=== PATIENT | female | born 1960 | race Caucasian/White ===

== ENCOUNTER 2020-07-16 06:01 | Inpatient (IN) ==
--- NOTE | 2020-06-23 14:42 | PAT Medication Instructions ---
Medication Instructions Date of Service June 23, 2020 Home Medications buspirone 30 mg PO BID calcium citrate-vitamin D3 [Calcitrate-Vitamin D] 1 tab PO TID clonazepam 1 mg PO BID PRN diltiazem HCl 90 mg PO TID docusate sodium [Stool Softener] 50 mg PO BID escitalopram oxalate [Lexapro] 20 mg PO HS gabapentin 300 mg PO TID lisinopril 40 mg PO QAM multivitamin 1 cap PO QAM pantoprazole 40 mg PO QAM polyethylene glycol 3350 [Miralax] 17 g PO QAM rosuvastatin 10 mg PO QAM sucralfate 1 g PO TID trazodone 150 mg PO HS DO NOT take the morning of surgery calcium citrate-vitamin D3 [Calcitrate-Vitamin D] 1 tab PO TID docusate sodium [Stool Softener] 50 mg PO BID lisinopril 40 mg PO QAM multivitamin 1 cap PO QAM polyethylene glycol 3350 [Miralax] 17 g PO QAM sucralfate 1 g PO TID Take morning of surgery With a small sip of water, OTHERWISE NOTHING TO EAT OR DRINK AFTER MIDNIGHT: buspirone 30 mg PO BID clonazepam 1 mg PO BID PRN (if needed) diltiazem HCl 90 mg PO TID gabapentin 300 mg PO TID pantoprazole 40 mg PO QAM rosuvastatin 10 mg PO QAM Take evening before surgery buspirone 30 mg PO BID calcium citrate-vitamin D3 [Calcitrate-Vitamin D] 1 tab PO TID clonazepam 1 mg PO BID PRN (if needed) diltiazem HCl 90 mg PO TID docusate sodium [Stool Softener] 50 mg PO BID escitalopram oxalate [Lexapro] 20 mg PO HS gabapentin 300 mg PO TID sucralfate 1 g PO TID trazodone 150 mg PO HS Other Notes If you have any questions please call us at [phone] or [phone] or [phone] or [phone]
--- NOTE | 2020-06-29 10:25 | Anesthesiology Consultation ---
Date of Service June 29, 2020 Assessment & Plan (1) Encounter for pre-operative examination: COVID Status: As of 06/29 assessment, patient denies travel to endemic area, known exposure/sick contacts, or symptoms of COVID19. Patient instructed that they and their household members must follow strict social distancing guidelines, wear a mask in public and avoid travel/events/gatherings for 14 days prior to surgery. Preoperative COVID19 testing to be completed prior to surgery per surgeon's arrangements (07/09). Patient made aware to self-isolate as much as possible between COVID testing and surgery. Chart Review Chart Review: Acceptable Risk for Surgery and Patient seen in Pre Admission Testing Teaching & Discussion Instructed NPO after midnight before surgery, except medications with 15 cc of water. Medication instructions provided according to the PAT guidelines. History Surgery Operation Date: 07/16/20 10:35 Proposed Procedures p C6-C7 Anterior Cervical Discectomy Fusion, C5 Corpectomy, Spinal Cord Monitoring - Jeb Frazier, Height/Weight Height: 5 ft 7.5 in Weight: 98.4 kg Allergies Allergy/AdvReac Type Severity Reaction Status Date / Time naproxen [From Naprosyn] Allergy Intermediate hives, Verified 06/23/20 08:37 tongue swells NSAIDS (Non-Steroidal AdvReac Mild due to Verified 06/23/20 08:37 Anti-Inflamma gastric bypass Medications Home Medications Medication Instructions Recorded Confirmed Last Taken buspirone 30 mg PO BID 06/23/20 06/23/20 Unknown calcium citrate-vitamin D3 1 tab PO TID 06/23/20 06/23/20 Unknown [Calcitrate-Vitamin D] clonazepam 1 mg PO BID PRN 06/23/20 06/23/20 Unknown diltiazem HCl 90 mg PO TID 06/23/20 06/23/20 Unknown docusate sodium [Stool Softener] 50 mg PO BID 06/23/20 06/23/20 Unknown escitalopram oxalate [Lexapro] 20 mg PO HS 06/23/20 06/23/20 Unknown gabapentin 300 mg PO TID 06/23/20 06/23/20 Unknown lisinopril 40 mg PO QAM 06/23/20 06/23/20 Unknown multivitamin 1 cap PO QAM 06/23/20 06/23/20 Unknown pantoprazole 40 mg PO QAM 06/23/20 06/23/20 Unknown polyethylene glycol 3350 [Miralax] 17 g PO QAM 06/23/20 06/23/20 Unknown rosuvastatin 10 mg PO QAM 06/23/20 06/23/20 Unknown sucralfate 1 g PO TID 06/23/20 06/23/20 Unknown trazodone 150 mg PO HS 06/23/20 06/23/20 Unknown Past Medical History Medical History (Updated 06/29/20 @ 16:15 by Tuan Chase) Anxiety Cardiac murmur Mild MR/TR noted on previous echo. Depression GERD (gastroesophageal reflux disease) Herniated disc, cervical Hyperlipidemia Hypertension Irregular heart beat SVT? pt unsure. follows with Dr. Zuniga. Pt reports h/o "racing heart." Was offered ablation but declined. Symptoms resolved with Diltiazem. Kidney stones Small, under observation, no issues currently. Sleep apnea cpap, reports 75% compliance, sometimes falls asleep in recliner. Thyroid nodule PCP monitoring with serial imaging Exercise / Class Metabolic Activity II 4-5 Yardwork/Stairs/Walk up hill Past Surgical History Surgical History History of arthroscopy of left shoulder History of carpal tunnel release of both wrists History of left knee replacement History of right knee joint replacement History of total left hip arthroplasty Hx of section 1980 Hx of colonoscopy Hx of esophagogastroduodenoscopy Hx of gastric bypass 2010 Hx of hand surgery tips of fingers repaired from accident x 2 Hx of hysterectomy nitin Past Anesthesia History No Hx of Anesthesia Complications and No Family Hx of Anesthesia Complications (daughter PONV) History of PONV No Hx of PONV and No Hx of Motion Sickness Social History Smoking Status: Former smoker Do You Dip or Chew Tobacco: No Smoking End Date: smoked for 30yrs, quit > 10yrs ago Hx Alcohol Use: No Hx Substance Use: No substance use type: does not use Review of Systems Pt denies any recent chest pain, shortness of breath, palpitations, cough, fever, URI, or uncontrolled acid reflux. Physical Exam Vital Signs BP: 120/67 P: 63bpm SPO2: 97% RA T: 98.1 F R: 16 ENMT Mouth: no dental restorations, no chipped teeth and no loose teeth Thyromental Distance: > or= 3.5 Finger Breadths Mallampati Class: I Neck normal visual inspection and + limited neck extension (pain with full extension) Respiratory normal respiratory effort, lungs clear to auscultation Auscultation: + diminished lung sounds (slightly, B/L) Cardiovascular Rate/Rhythm: + bradycardic Heart Sounds: no murmur Extremities: no edema Testing Laboratory Results 06/29/20 10:32 06/29/20 10:32 PT 10.1 Seconds (9.0-12.0) 06/29/20 10:32 INR 1.0 (0.9-1.1) 06/29/20 10:32 APTT 24.6 Seconds (21.0-31.0) 06/29/20 10:32 Urine Color Yellow 06/29/20 Unknown Urine Appearance Clear (Clear) 06/29/20 Unknown Urine pH 7.0 (4.5-7.5) 06/29/20 Unknown Ur Specific [place] 1.010 (1.000-1.030) 06/29/20 Unknown Urine Protein Negative (Negative) 06/29/20 Unknown Urine Glucose (UA) Negative (Negative) 06/29/20 Unknown Urine Ketones Negative (Negative) 06/29/20 Unknown Urine Nitrite Negative (Negative) 06/29/20 Unknown Ur Leukocyte Esterase Negative (Negative) 06/29/20 Unknown Blood Type A Positive 06/29/20 10:32 Antibody Screen NEGATIVE 06/29/20 10:32 Electrocardiogram Date: 06/29/20 Findings: + SB @ (52bpm) with 1st degree AV block *Unconfirmed. Chest X-Ray Date: 06/29/20 Findings: + NAD Echocardiogram Date: 06/19/19 EF: 55% Mildly increased PASP at 35mmHg. Slightly dilated LA, normal RA. Mild TR and MR. Normal pulmonic and aortic valves. Trivial circumferential pericardial effusion. Stress Test Date: 02/15/17 Type: nuclear Good quality study. Normal gated MPI wall motion and EF. No significant rest or stress-induced MPI defects to suggest myocardial ischemia or infarction. Low risk study.
[2020-06-29 11:05] LABS: Basophils # (auto) 0.01 K/uL (0-0.2); Basophils % (auto) 0.1 %; Eosinophils # (auto) 0.09 K/uL (0-0.5); Eosinophils % (auto) 1.3 %; Hematocrit (blood only) 42.3 % (37-47); Immature Granulocytes # (auto) 0.01 K/uL (0.00-0.02); Immature Granulocytes % (auto) 0.1 %; Lymphocytes # (auto) 1.84 K/uL (1.2-3.4); Lymphocytes % (auto) 25.8 %; Mean Corpuscular Hemoglobin 30.5 pg (25-34); Mean Corpuscular Hgb Conc 33.1 g/dL (32-36); Mean Corpuscular Volume 92.2 fL (80-100); Mean Platelet Volume 10.2 fL (7.4-10.4); Monocytes # (auto) 0.57 K/uL (0.11-0.59); Neutrophils % (auto) 64.7 %; Platelet Count 282 K/uL (130-400); RDW Standard Deviation 43.4 fL (36.4-46.3); Red Blood Count 4.59 M/uL (4.2-5.4); White Blood Count 7.12 K/uL (4.8-10.8)
--- NOTE | 2020-06-29 11:06 | XRay Report ---
XR chest Pre-admission PA/Lat CLINICAL HISTORY: Preoperative chest COMPARISON STUDY: No previous studies for comparison. FINDINGS: The cardiac and mediastinal contours are normal. There is no evidence of focal pulmonary co nsolidation. There is no evidence of failure. No pleural effusions are visualized.[There is calcified left lower lobe granuloma. There is a thoracolumbar scoliosis. IMPRESSION: No active disease in the chest. ACT 112: Negative or not required by law. Electronically signed by: Doc Zhang M.D. 06/29/2020 11:04 AM
[2020-06-29 11:10] LABS: Appearance Urine Clear (Clear); Bilirubin Urine Negative (Negative); Blood Urine Negative (Negative); Color Urine Yellow; Glucose Urine UA Negative (Negative); Ketones Urine Negative (Negative); Leukocyte Esterase Urine Negative (Negative); Nitrite Urine Negative (Negative); Protein Urine Negative (Negative); Urobilinogen Urine Negative (Negative)
[2020-06-29 11:18] LABS: Partial Thromboplastin Ratio 0.9; Partial Thromboplastin Time 24.6 Seconds (21.0-31.0); Prothrombin Time 10.1 Seconds (9.0-12.0)
[2020-06-29 12:16] LABS: BUN Creatinine Ratio 13.9 (10-20); Calcium 9.1 mg/dl (8.5-10.1); Creatinine Clr Calc Pharmacy 89.8 ml/min; Est GFR (Non-African American) 80.2; Potassium 4.2 mmol/L (3.5-5.1)
--- NOTE | 2020-06-30 06:14 | Electrocardiogram Report ---
Test Reason : Blood Pressure : / mmHG Vent. Rate : 052 BPM Atrial Rate : 052 BPM P-R Int : 222 ms QRS Dur : 102 ms QT Int : 456 ms P-R-T Axes : 074 055 053 degrees QTc Int : 424 ms Sinus bradycardia with 1st degree A-V block Otherwise normal ECG No previous ECGs available Confirmed by Romie Devi ([id number]) on 06/30/2020 6:14:10 AM Referred By: Jeb Frazier Confirmed By:Romie Devi
[~2020-07-16 06:01] MED LIST: ACETAMINOPHEN 500 MG TAB PO SCH; CeleBREX 200 MG CAP PO SCH; GABAPENTIN 600 MG DOSE PO SCH; LR 15ML/HR IV SCH; ceFAZolin 2000MG 2,000 MG/15 ML SYR IV SCH
[2020-07-16] MEDS: CELEBREX: ALLERGY NOTED TO ORDERED MEDICATION SCH ×2 (06:37→13:09)
[2020-07-16] MEDS ORDERED: fentaNYL citrate 100 MCG/2 ML VIAL ONE ×2 (06:54→08:11)
[2020-07-16] MEDS ORDERED: BACITRACIN INJ 50,000 UNIT VIAL ONE (06:54)
[2020-07-16] MEDS ORDERED: MIDAZOLAM HCL 1 MG/ML 2ML VIAL ONE (06:54)
[2020-07-16] MEDS ORDERED: PROPOFOL IV EMULSION 10 MG/ML 20 ML VIAL IV ONE (07:02)
[2020-07-16] MEDS ORDERED: NEOSTIGMINE METHYLSULFATE 1 MG/ML 10ML VIAL ONE (07:02)
[2020-07-16] MEDS ORDERED: GLYCOPYRROLATE 0.2 MG/ML VIAL ONE (07:02)
[2020-07-16] MEDS ORDERED: LIDOCAINE HCL 2% 2 ML VIAL/AMP(20MG/ML) INFIL ONE (07:02)
[2020-07-16] MEDS ORDERED: ROCURONIUM BROMIDE 10 MG/ML 5 ML VIAL IV ONE (07:02)
[2020-07-16] MEDS ORDERED: LABETALOL HCL IV 5 MG/ML 20ML IV PRN (07:28)
[2020-07-16] MEDS ORDERED: ATROPINE SULFATE 0.1 MG/ML 10ML SYR IV PRN (07:28)
[2020-07-16] MEDS ORDERED: ONDANSETRON INJ 2 MG/ML 2 ML VIAL IV PRN ×2 (07:28→11:29)
[2020-07-16] MEDS ORDERED: PHENYLEPHRINE 100MCG/ML 5ML SYR IV PRN (07:28)
[2020-07-16] MEDS ORDERED: ePHEDrine sulfate 50 MG/ML AMP IV PRN (07:28)
[2020-07-16] MEDS ORDERED: MEPERIDINE HCL 25 MG/ML CARP/VIAL IV PRN (07:28)
--- NOTE | 2020-07-16 07:31 | History & Physical Bridge Note ---
Date of Service July 16, 2020 History & Physical Bridge Note I have examined the patient, reviewed the History & Physical and in the interval since the performance of the History & Physical I have noted the following changes of clinical significance: no changes noted
--- NOTE | 2020-07-16 07:34 | History & Physical Report ---
Date of Service July 16, 2020 Assessment & Plan (1) Cervical stenosis of spinal canal: Admission and Anticipated Discharge Date Admission Date: Anterior cervical discectomy and fusion C6-C7 with C5 corpectomy History of Present Illness Chief Complaint: Neck and arm pain Primary Care Provider: Margaret Dougherty DO This is a 60-year-old female presents with chronic persistent neck and arm symptoms after failing course of nonoperative care she is here for surgical invention. Allergies Allergy/AdvReac Type Severity Reaction Status Date / Time naproxen [From Naprosyn] Allergy Intermediate hives, Verified 07/16/20 06:39 tongue swells NSAIDS (Non-Steroidal AdvReac Mild due to Verified 07/16/20 06:39 Anti-Inflamma gastric bypass Home Medications Medication Instructions Recorded Confirmed Type buspirone 30 mg PO BID 06/23/20 07/16/20 History calcium citrate-vitamin D3 1 tab PO TID 06/23/20 07/16/20 History [Calcitrate-Vitamin D] clonazepam 1 mg PO BID PRN 06/23/20 07/16/20 History diltiazem HCl 90 mg PO TID 06/23/20 07/16/20 History docusate sodium [Stool Softener] 50 mg PO BID 06/23/20 07/16/20 History escitalopram oxalate [Lexapro] 20 mg PO HS 06/23/20 07/16/20 History gabapentin 300 mg PO TID 06/23/20 07/16/20 History lisinopril 40 mg PO QAM 06/23/20 07/16/20 History multivitamin 1 cap PO QAM 06/23/20 07/16/20 History pantoprazole 40 mg PO QAM 06/23/20 07/16/20 History polyethylene glycol 3350 [Miralax] 17 g PO QAM 06/23/20 07/16/20 History rosuvastatin 10 mg PO QAM 06/23/20 07/16/20 History sucralfate 1 g PO TID 06/23/20 07/16/20 History trazodone 150 mg PO HS 06/23/20 07/16/20 History Past Med/Surg History Medical History (Updated 07/16/20 @ 07:33 by Jeb Frazier DO) Anxiety Cardiac murmur Mild MR/TR noted on previous echo. Depression GERD (gastroesophageal reflux disease) Herniated disc, cervical Hyperlipidemia Hypertension Irregular heart beat SVT? pt unsure. follows with Dr. Zuniga. Pt reports h/o "racing heart." Was offered ablation but declined. Symptoms resolved with Diltiazem. Kidney stones Small, under observation, no issues currently. Obesity Sleep apnea cpap, reports 75% compliance, sometimes falls asleep in recliner. Thyroid nodule PCP monitoring with serial imaging Surgical History History of arthroscopy of left shoulder History of carpal tunnel release of both wrists History of left knee replacement History of right knee joint replacement History of total left hip arthroplasty Hx of section 1980 Hx of colonoscopy Hx of esophagogastroduodenoscopy Hx of gastric bypass 2009 Hx of hand surgery tips of fingers repaired from accident x 2 Hx of hysterectomy nitin Social History Smoking Status: Former smoker Smoking End Date: smoked for 30yrs, quit > 10yrs ago; Second Hand Exposure: No; Do You Dip or Chew Tobacco: No; Tobacco Cessation Education Requested by Patient: No Hx Alcohol Use: No Hx Substance Use: No Preferred Language: Japanese Communication Ability: Effective Outside Machinist Helper Required: No Beliefs That Will Affect Care: None Current Living Situation: Spouse Other Information That Helps Us Care for You: No Feels Safe at Home: Yes Safety Concerns: Feels Safe At This Time Assistive Devices: Contacts, CPAP and Glasses Physical Exam Physical Exam: Patient is alert and oriented Heart regular in rhythm Lungs clear to auscultation Results & Data ([facility]) Vital Signs (Past 12 Hours) Vital Signs Temp Pulse Resp BP Pulse Ox 07/16/20 06:52 36.9 C 65 20 142/54 H 96
[2020-07-16] MEDS ORDERED: ONDANSETRON INJ 2 MG/ML 2 ML VIAL ONE (08:31)
[2020-07-16] MEDS ORDERED: SUCCINYLCHOLINE 100MG/5ML SYR IV ONE (08:31)
[2020-07-16] MEDS ORDERED: DEXAMETHASONE SOD INJ 4 MG/ML VIAL ONE (08:31)
[2020-07-16] MEDS ORDERED: ePHEDrine sulfate 50 MG/ML SYR ONE (08:31)
[2020-07-16] MEDS ORDERED: FLOSEAL HEMOSTATIC MATRIX 10ML TOP ONE (09:32)
--- NOTE | 2020-07-16 09:41 | Operative Report ---
Post Operative Report Pre & Post Diagnosis Operation Date: 07/16/20 07:45 Pre-Op Diagnosis: Cervical spinal stenosis with myeloradiculopathy Post-Op Diagnosis: Same I identified the patient and participated in the time-out.: Yes Procedure Operation Date: 07/16/20 07:45 Actual Procedures #1 anterior cervical corpectomy with bilateral foraminotomies C5. #2 anterior cervical discectomy with bilateral foraminotomies C6-C7. #3 intracervical arthrodesis C4-C6 and C6-C7. #4 placement of peek cage 23 mm in height at C4-C6 and 9 mm height at C6-C7. #5 placement locally harvested morselized autograft combined with I factor in the interbody cages. #6 application of perez plate and screws from C4-C7. Surgeon Jeb Frazier, DO Gas Collection System Operator Uche Joseph Estimated Blood Loss 50 Findings See Below The patient is 5 foot 7 inches tall weighing 98 kg with a BMI in excess of 33. The patient's body habitus did contribute to significant technical difficulty adding at least 25% increase to the operative time. Specimens None Indications This is a 58-year-old female who presents with above-mentioned diagnosis after failing course of nonoperative care is here for the above-mentioned procedure. Description of Procedure Patient was met with identified informed consent obtained. Patient was then taken to the operative suite underwent a patient placed in supine position Joseph table with the head in the Riggs tilting head band sawyer. All bony prominences well-padded eyes inspected to ensure no external pressure placed upon the. This point the anterior cervical spine was prepped and draped in a sterile fashion. The assistance of fluoroscopy identified the C5-6 displacement transverse incision was placed along the right anterior aspect of the cervical spinal lines region. Sharp dissection with the assistance of bipolar cautery performed down to and exposing the anterior cervical spine from C4-C7. Several 10 retractors placed. Then performed a complete discectomy of C45 to the uncovertebral joints bilaterally followed by C5-6. [place] distraction pins were placed in C4 and C6 distract across the C5 vertebral body. A complete corpectomy was then performed including removal of all posterior annular fibers longitudinal ligament bilateral foraminotomies for complete decompression. Endplates were then burred to subcortical bleeding bone and a 23 mm peek cage filled with locally harvested morselized autograft and I factor tapped in position. Distracting apparatus was removed and I proceeded to C6-C7. Again complete discectomy performed out to the uncovertebral joints bilaterally. [place] distraction pins again utilized. Removed all posterior annular fibers longitudinal ligament bilateral foraminotomies performed. Endplates burred to subcortically bone and a 9 mm peek cage filled with locally harvested morselized autograft and I factor tapped in position. Distracting apparatus was removed all anterior osteophytes burred to a smooth cortical surface of 5 complete and screws applied with the assistance of fluoroscopy. The incision was then copiously irrigated explored to ensure no damage to surrounding structures remaining bleeding. 10 round ILDA drain inserted. Was then closed with 2 Vicryl fascia 4 Monocryl for final skin closure. Steri-Strip sterile dressing placed. Patient will continue PACU stable condition. Please note spinal cord monitoring was utilized at the procedure and no changes noted. Lastly Uche Joseph was present at the entire procedure involved in patient positioning complex portions of the surgery and final skin closure. I attest to the content of the Intraoperative Record and any orders documented therein. Any exceptions are noted below.
[2020-07-16] MEDS: fentaNYL citrate 100 MCG/2 ML VIAL IV PRN ×4 (10:14→10:29)
[2020-07-16] MEDS: HYDROmorphone INJ 1 MG/ML SYRINGE IV PRN ×4 (10:34→10:53)
--- NOTE | 2020-07-16 11:03 | Fluoroscopy Report ---
FL cervical 2-3V CLINICAL HISTORY: ACDF C6-C7 CORPECTOMY C5 COMPARISON STUDY: None. FLUOROSCOPY TIME: 7.7 seconds. FLUOROSCOPIC IMAGES: 1 FINDINGS: Sponge marker is noted. Endotracheal tube is partially imaged. Exact localization is not po ssible given partial visualization of the cervical spine. A one level corpectomy is noted with multil evel discectomy and anterior fusion. IMPRESSION: Fluoroscopy provided during corpectomy and multilevel discectomy and anterior fusion. ACT 112: Negative or not required by law. Electronically signed by: Dimitris Grubbs M.D. 07/16/2020 11:01 AM
--- NOTE | 2020-07-16 11:19 | Anesthesiology Progress Note ---
Date of Service July 16, 2020 Anesthesia Post Procedure Vital Signs Vital Signs: Temp Pulse Pulse Resp BP Pulse Ox 07/16/20 11:05 36.4 C L 70 20 140/61 95 07/16/20 10:55 65 16 139/59 L 95 07/16/20 10:45 76 16 140/60 95 07/16/20 10:35 77 15 175/75 H 95 07/16/20 10:25 75 14 174/66 H 96 07/16/20 10:15 77 14 173/79 H 96 07/16/20 10:05 76 16 166/69 H 95 07/16/20 09:55 36.0 C L 75 18 116/95 95 07/16/20 06:52 36.9 C 65 20 142/54 H 96 Pain Intensity Neck: Pain Intensity: 4 Transfer of Care Handoff Completed per policy Notes Mental Status: alert / awake / arousable Patient Amnestic to Procedure: Yes Nausea / Vomiting: adequately controlled Pain: adequately controlled Airway Patency, RR, SpO2: stable & adequate BP & HR: stable & adequate Hydration State: stable & adequate Anesthetic Complications: no major complications apparent and Pt Satisfied with anesthetic care Notes: The patient is awake and comfortable. Her neck has no swelling and the dressing is dry.
[2020-07-16] MEDS ORDERED: traMADol HCL 50 MG TABLET PO PRN (11:29)
[2020-07-16] MEDS ORDERED: LORazepam 0.5 MG/1 ML VIAL IV PRN (11:29)
[2020-07-16] MEDS ORDERED: ALUMINUM/MAGNESIUM SUSP 30 ML UDC PO PRN (11:29)
[2020-07-16] MEDS ORDERED: MAGNESIUM HYDROXIDE SUSP 30 ML UDC PO PRN (11:29)
[2020-07-16] MEDS ORDERED: NALOXONE HCL 0.4 MG/1 ML VIAL/CARP IV PRN (11:29)
[2020-07-16] MEDS ORDERED: FAMOTIDINE 20 MG TAB PO PRN (11:29)
[2020-07-16] MEDS ORDERED: HYDROmorphone INJ 0.5 MG/0.5 ML SYR IV PRN (11:29)
[2020-07-16] MEDS ORDERED: ACETAMINOPHEN 500 MG TAB PO PRN (11:29)
[2020-07-16] MEDS ORDERED: diphenhydrAMINE Capsule 25 MG CAP PO PRN (11:29)
[2020-07-16] MEDS ORDERED: RACEPINEPHRINE 2.25% NEBU SOLN 0.5 ML VIAL INH PRN (11:29)
[2020-07-16] MEDS ORDERED: ACETAMINOPHEN 1,000 MG/100 ML VIAL IV PRN (11:29)
[2020-07-16] MEDS ORDERED: DO NOT ADMINISTER FLU VACCINE PRN (11:29)
[2020-07-16] MEDS ORDERED: ONDANSETRON 4 MG OD TAB PO PRN (11:29)
[2020-07-16] MEDS ORDERED: HYDROmorphone INJ 1 MG/ML SYRINGE IV PRN (11:29)
[2020-07-16] MEDS ORDERED: hydrOXYzine HCl 25 MG TAB PO PRN (11:29)
[2020-07-16] MEDS ORDERED: DO NOT ADMINISTER PNEUMOCOCCAL VACCINE PRN (11:29)
[2020-07-16] MEDS ORDERED: dexAMETHasone 8 MG in SYRINGE 0 ML IV PRN (11:29)
[2020-07-16] MEDS ORDERED: LORazepam 0.5 MG TAB PO PRN (11:29)
[2020-07-16] MEDS ORDERED: PROMETHAZINE HCL 12.5 MG in SODIUM CHLORIDE 0.9% 50 ML IV PRN (11:29)
[2020-07-16] MEDS ORDERED: clonazePAM 1 MG TAB PO PRN (11:29)
[2020-07-16] MEDS ORDERED: SOD PHOSPHATE/SOD BIPHOSPHATE ENEMA 132 ML BTL PR PRN (11:29)
[2020-07-16] MEDS ORDERED: METOCLOPRAMIDE HCL INJ 5 MG/ML 2 ML VIAL IV PRN (11:29)
--- NOTE | 2020-07-16 11:50 | Hospitalist Consultation ---
Date of Consultation July 16, 2020 Assessment & Plan (1) H/O cervical spine surgery: This is a 60yo F with PMH of HTN, history of SVT, JALYN on CPAP, depression and anxiety who is POD #0 s/p C5 corpectomy with bilateral foraminotomies and ACDF C6-C7 by Dr. Frazier. POD #0 s/p C5 corpectomy with bilateral foraminotomies C5 and ACDF C6-C7 by Dr. Frazier. Pt is doing well post-operatively Per ortho for pain control, wound care, anticoagulation and activities Monitor H&H (pre-op hgb 14.0, EBL 50ml, no ILDA drain output to date) Continue incentive spirometry, PT/OT when appropriate (2) History of paroxysmal supraventricular tachycardia: Currently in NSR, HR of 61 Continue Diltiazem TID Follows with chief medical officer Dr Zuniga in [place] (3) Hypertension: Optimize pain control. Hold lisinopril in AM, reassess BMP before resuming (4) Hyperlipidemia: Continue statin (5) Depression: Continue SSRI (6) Anxiety: Continue Buspar, Clonazepam PRN (7) Sleep apnea: Somewhat compliant with CPAP at home. Will hold off on using for now due to post op cervical spine, continue supplemental O2 as needed. Continous pulse ox PCP: Ladonna Dispo: Per primary service Patient seen in collaboration with Dr. Ramirez. Please see addendum. Supervising Physician Co-Signing Physician Notes Patient is a 60-year-old female with history of hypertension, S/P gastric bypass, SVT and other medical problems was seen and examined postop after having cervical surgery for cervical spinal stenosis with myeloradiculopathy by Dr. Frazier POD#0. Patient is doing well postop. She denies any chest pain, shortness of breath, dysphagia, dizziness, nausea, abdominal pain, tingling or numbness of upper extremities. On exam patient is obese, no apparent distress, normocephalic atraumatic,+ neck collar,+ drain, lungs are clear to auscultation, normal breath sounds, S1-S2, no murmur, no pedal edema, abdomen soft, nontender, normal bowel sounds, alert, awake, oriented, grossly nonfocal neurologic deficits. Patient is consulted for postop medical management. Monitor CBC for postop anemia. Pain control, activity, wound care, DVT prophylaxis as per orthopedics. Continue incentive spirometry, bowel regimen to prevent constipation. Will resume diltiazem for rate control given history of SVT. Plan to resume lisinopril tomorrow if renal function remains stable. Patient noncompliant with CPAP for JALYN due to intolerance. Expect leukocytosis given IV Decadron use postoperatively. I personally reviewed the record. Patient is interviewed and examined at bedside. Patient's care is coordinated with Ivis Sosa PA-C. Please refer to the documentation above for details of patient's presentation and for discussion of other issues. History of Present Illness Reason for Consultation: post op med mgmt Attending Physician: Jeb Frazier DO History of Present Illness This is a 60yo F with PMH of HTN, history of SVT, JALYN on CPAP, depression and anxiety who is POD #0 s/p C5 corpectomy with bilateral foraminotomies and ACDF C6-C7 by Dr. Frazier. Feeling well postoperatively. Surgical site pain is well controlled. Denies any pain or paresthesias in bilateral upper extremities. Denies any difficulty swallowing or nausea. No fever, chills, lightheadedness, chest pain, vomiting, abdominal pain, dysuria, diarrhea or constipation. Denies any recent medication changes. History of paroxysmal SVT and follows with cardiology. Did get morning dose of diltiazem but is due for afternoon dose. Allergies Allergy/AdvReac Type Severity Reaction Status Date / Time naproxen [From Naprosyn] Allergy Intermediate hives, Verified 07/16/20 06:39 tongue swells NSAIDS (Non-Steroidal AdvReac Mild due to Verified 07/16/20 06:39 Anti-Inflamma gastric bypass Home Medications Medication Instructions Recorded Confirmed Type buspirone 30 mg PO BID 06/23/20 07/16/20 History calcium citrate-vitamin D3 1 tab PO TID 06/23/20 07/16/20 History [Calcitrate-Vitamin D] clonazepam 1 mg PO BID PRN 06/23/20 07/16/20 History diltiazem HCl 90 mg PO TID 06/23/20 07/16/20 History docusate sodium [Stool Softener] 50 mg PO BID 06/23/20 07/16/20 History escitalopram oxalate [Lexapro] 20 mg PO HS 06/23/20 07/16/20 History gabapentin 300 mg PO TID 06/23/20 07/16/20 History lisinopril 40 mg PO QAM 06/23/20 07/16/20 History multivitamin 1 cap PO QAM 06/23/20 07/16/20 History pantoprazole 40 mg PO QAM 06/23/20 07/16/20 History polyethylene glycol 3350 [Miralax] 17 g PO QAM 06/23/20 07/16/20 History rosuvastatin 10 mg PO QAM 06/23/20 07/16/20 History sucralfate 1 g PO TID 06/23/20 07/16/20 History trazodone 150 mg PO HS 06/23/20 07/16/20 History Patient History Medical History Anxiety Depression GERD (gastroesophageal reflux disease) Herniated disc, cervical History of paroxysmal supraventricular tachycardia Hyperlipidemia Hypertension Kidney stones Small, under observation, no issues currently. Obesity Sleep apnea cpap, reports 75% compliance, sometimes falls asleep in recliner. Thyroid nodule PCP monitoring with serial imaging Surgical History History of arthroscopy of left shoulder History of carpal tunnel release of both wrists History of left knee replacement History of right knee joint replacement History of total left hip arthroplasty Hx of section 1980 Hx of colonoscopy Hx of esophagogastroduodenoscopy Hx of gastric bypass 2009 Hx of hand surgery tips of fingers repaired from accident x 2 Hx of hysterectomy nitin Family History Other Diabetes Hypertension Social History Smoking Status: Former smoker Smoking End Date: smoked for 30yrs, quit > 10yrs ago; Second Hand Exposure: No; Do You Dip or Chew Tobacco: No; Tobacco Cessation Education Requested by Patient: No Hx Alcohol Use: No Hx Substance Use: No Preferred Language: Estonian Communication Ability: Effective Manager Agricultural Required: No Beliefs That Will Affect Care: None Current Living Situation: Spouse Other Information That Helps Us Care for You: No Feels Safe at Home: Yes Safety Concerns: Feels Safe At This Time Assistive Devices: Contacts, CPAP and Glasses Review of Systems Review of Systems: At least ten systems reviewed and negative except as noted in the HPI. Physical Exam Physical Exam: General Appearance: WD/WN, vitals as above, NAD, sitting up in bed, pleasant, conversing easily Head: normocephalic, atraumatic Eyes: normal inspection, PERRL, conjunctivae normal, anicteric sclerae ENT: external ear and nose normal, oropharynx normal Neck: + C collar with surgical dressings c/d/i Respiratory: normal respiratory effort, lungs clear to auscultation, no wheeze, rales, rhonchi. No accessory muscle use Cardiovascular: regular rate, rhythm, no murmur, normal peripheral pulses, no BLE edema Abdomen/GI: normal bowel sounds, soft, nontender, no hepatosplenomegaly Extremities/Musculoskeletal: no cyanosis or clubbing, extremities motor strength 5/5 Neurologic: PERRL, no dysarthria, CN's II-XI intact bilaterally and moves all extremities Psychiatric: A+Ox3, euthymic affect Skin: no rashes, normal color, warm/dry Results & Data Results & Data ([facility]) Vital Signs (Past 12 Hours) Vital Signs Temp Pulse Pulse Resp BP Pulse Ox 07/16/20 11:15 73 20 136/65 95 07/16/20 11:05 36.4 C L 70 20 140/61 95 07/16/20 10:55 65 16 139/59 L 95 07/16/20 10:45 76 16 140/60 07/16/20 10:35 77 15 175/75 H 07/16/20 10:25 75 14 174/66 H 96 07/16/20 10:15 77 14 173/79 H 96 07/16/20 10:05 76 16 166/69 H 95 07/16/20 09:55 36.0 C L 75 18 116/95 95 07/16/20 06:52 36.9 C 65 20 142/54 H 96 Laboratory Results Pertinent pre-op labwork (06/29/20): WBC 7.12 HGB 14.0 PLT 282 CR 0.79 GFR 80.2
[2020-07-16] MEDS: SODIUM CHLORIDE 0.9% 1000ML 1,000 ML IV SCH ×2 (12:59→22:03)
[2020-07-16] MEDS: oxyCODONE HCL IR 5 MG TAB (IMMEDIATE RELEASE) PO PRN ×3 (13:29→22:02)
[2020-07-16] MEDS ORDERED: POLYETHYLENE (MIRALAX) 17 GM PACK PO PRN (13:48)
[2020-07-16] MEDS: CALCIUM 600MG + VIT D 400 IU TAB PO SCH ×2 (14:11→20:22)
[2020-07-16] MEDS: ceFAZolin 2000MG 2,000 MG/15 ML SYR IV SCH (15:33)
[2020-07-16] MEDS: dilTIAZem HCL 30 MG TAB PO SCH ×2 (15:35→21:25)
[2020-07-16] MEDS: SUCRALFATE 1 GM TAB PO SCH ×2 (15:35→20:23)
[2020-07-16] MEDS: GABAPENTIN 300 MG CAP PO SCH ×2 (15:36→20:22)
[2020-07-16] MEDS: busPIRone 15 MG TAB PO SCH (20:22)
[2020-07-16] MEDS ORDERED: ESCITALOPRAM OXALATE 20 MG TAB PO SCH (21:00)
[2020-07-16] MEDS ORDERED: DOCUSATE SODIUM/SENNA 50/8.6MG TAB PO SCH (21:00)
[2020-07-16] MEDS ORDERED: traZODone HCL 50 MG TAB PO SCH (21:00)
[2020-07-17] MEDS: ceFAZolin 2000MG 2,000 MG/15 ML SYR IV SCH (00:16)
[2020-07-17] MEDS ORDERED: POLYETHYLENE (MIRALAX) 17 GM PACK PO SCH ×2 (06:00→09:00)
[2020-07-17] MEDS: oxyCODONE HCL IR 5 MG TAB (IMMEDIATE RELEASE) PO PRN ×2 (06:20→10:29)
--- NOTE | 2020-07-17 08:11 | Orthopedic Progress Note ---
Date of Service July 17, 2020 Assessment & Plan (1) Cervical stenosis of spinal canal: Overall patient is doing well. We will discharge her home today. We will DC ILDA drain and have a dressing change prior to discharge. Restrictions have been reviewed in detail. Admission and Anticipated Discharge Date Admission Date: July 16, 2020 Supervising Physician Co-Signing Physician Notes Dr. Jeb Frazier [place] is postoperative day 1 C4-C7 ACDF. She had an uneventful evening. Arm symptoms greatly improved. Mild dysphagia but is tolerating a liquid diet so far. She is up and ambulatory. ILDA drain output last shift was 20 cc. Review of Systems Review of Systems: All systems reviewed & are unremarkable except as noted in HPI & below Physical Exam Physical Exam: She sitting in a chair in no acute distress [place] J collar is intact Anterior cervical dressing has some modest serosanguineous drainage. It is not completely saturated. ILDA drain is functioning. Motor testing is 5 5 bilateral biceps, triceps, deltoid Calf soft nontender bilaterally. Constitutional: WD/WN, vitals as above Eyes: normal visual lópez by confrontation ENMT: external ear and nose normal, oropharynx normal Neck: normal visual inspection Respiratory: normal respiratory effort Cardiovascular: Extremities: normal capillary refill Chest (Breasts): Chest: normal inspection of chest Gastrointestinal (Abdomen): Inspection/Auscultation: abdomen normal to inspection Musculoskeletal: Extremities: extremities normal to inspection and strength 5/5 throughout Skin: no rashes, warm and dry Neurologic: normal touch/pain/proprioception and moves all extremities Psychiatric: A+Ox3, euthymic affect Results & Data ([facility]) Vital Signs (Past 12 Hours) Vital Signs Temp Pulse Resp BP Pulse Ox 07/17/20 06:58 36.8 C 67 17 150/78 H 94 07/17/20 06:23 36.8 C 72 16 155/62 H 97 07/17/20 04:23 36.7 C 49 L 16 135/76 98 07/17/20 03:00 54 L 18 96 07/17/20 02:25 36.5 C 50 L 14 148/77 H 99 07/17/20 00:19 36.4 C L 54 L 14 131/78 97 07/16/20 23:01 62 16 94 07/16/20 22:25 36.5 C 52 L 16 150/72 H 97 07/16/20 20:25 36.4 C L 51 L 14 123/70 97
[2020-07-17] MEDS: busPIRone 15 MG TAB PO SCH (08:40)
[2020-07-17] MEDS: SUCRALFATE 1 GM TAB PO SCH (08:40)
[2020-07-17] MEDS: GABAPENTIN 300 MG CAP PO SCH (08:41)
[2020-07-17] MEDS: dilTIAZem HCL 30 MG TAB PO SCH (08:42)
[2020-07-17] MEDS: CALCIUM 600MG + VIT D 400 IU TAB PO SCH (08:42)
[2020-07-17] MEDS ORDERED: CEROVITE ADV FORMULA TAB PO SCH (09:00)
[2020-07-17] MEDS ORDERED: ROSUVASTATIN CALCIUM 10 MG TAB PO SCH (09:00)
[2020-07-17] MEDS ORDERED: PANTOprazole 40 MG TAB PO SCH (09:00)
[2020-07-17] MEDS ORDERED: lisinopril 40 MG TAB PO SCH (09:00)
[2020-07-17 09:13] LABS: BUN Creatinine Ratio 7.2 (10-20); Calcium 9.3 mg/dl (8.5-10.1); Creatinine Clr Calc Pharmacy 84.2 ml/min; Est GFR (African American) 86.3; Est GFR (Non-African American) 74.5; Magnesium 2.1 mg/dl (1.8-2.4)
[2020-07-17 09:16] LABS: Hematocrit (blood only) 40.3 % (37-47); Hemoglobin 13.5 g/dL (12.0-16.0); Mean Corpuscular Hgb Conc 33.5 g/dL (32-36); Mean Corpuscular Volume 92.4 fL (80-100); Mean Platelet Volume 10.3 fL (7.4-10.4); Platelet Count 281 K/uL (130-400); RDW Standard Deviation 44.4 fL (36.4-46.3); Red Blood Count 4.36 M/uL (4.2-5.4); White Blood Count 14.79 K/uL (4.8-10.8)
--- NOTE | 2020-07-17 13:23 | Hospitalist Progress Note ---
Date of Service July 17, 2020 Assessment & Plan (1) H/O cervical spine surgery: This is a 60yo F with PMH of HTN, history of SVT, JALYN on CPAP, depression and anxiety who is POD #0 s/p C5 corpectomy with bilateral foraminotomies and ACDF C6-C7 by Dr. Frazier. POD #1 s/p C5 corpectomy with bilateral foraminotomies C5 and ACDF C6-C7 by Dr. Frazier. Pt is doing well post-operatively Per ortho for pain control, wound care, anticoagulation and activities Monitor H&H (pre-op hgb 14.0, EBL 50ml, no ILDA drain output to date) Continue incentive spirometry, PT/OT when appropriate Medically stable without any significant symptoms Her labs reviewed and nothing unremarkable noted She is medically stable to be discharged (2) History of paroxysmal supraventricular tachycardia: Currently in NSR, HR of 61 Continue Diltiazem TID Follows with carbon brusher assembler Dr Zuniga in [place] (3) Hypertension: Optimize pain control. Hold lisinopril in AM, reassess BMP before resuming (4) Hyperlipidemia: Continue statin (5) Depression: Continue SSRI (6) Anxiety: Continue Buspar, Clonazepam PRN (7) Sleep apnea: Somewhat compliant with CPAP at home. Will hold off on using for now due to post op cervical spine, continue supplemental O2 as needed. Continous pulse ox PCP: Ladonna Dispo: Per primary service Medically stable to be discharged Admission and Anticipated Discharge Date Admission Date: July 16, 2020 Subjective 07/17/2020 The patient was seen and examined in medical floor She is status post C5 corpectomy with bilateral foraminotomies and ACDF C6-C7, POD #1 Denies any significant symptoms Review of Systems Review of Systems: All systems reviewed and are unremarkable except as noted below Musculoskeletal: Has cervical collar in situ with minimal pain Physical Exam Physical Exam: No apparent distress at rest Constitutional: well developed, well nourished and + obese; not ill appearing Eyes: PERRL, conjunctivae normal, anicteric sclerae ENMT: external ear and nose normal, oropharynx normal Neck: trachea midline, no thyromegaly Respiratory: no respiratory distress Auscultation: lungs clear to auscultation bilaterally Cardiovascular: Rate/Rhythm: regular rate and regular rhythm Heart Sounds: no murmur Gastrointestinal (Abdomen): Inspection/Auscultation: normal bowel sounds; abdomen not distended Percussion/Palpation: abdomen soft; abdomen nontender Musculoskeletal: Cervical collar in situ and status post cervical surgery Neurologic: Alert, awake and oriented x3 Psychiatric: A+Ox3, euthymic affect Results & Data Results & Data ([facility]) Vital Signs (Past 12 Hours) Vital Signs Temp Pulse Resp BP Pulse Ox 07/17/20 11:00 69 16 94 07/17/20 10:20 36.5 C 67 18 123/69 94 07/17/20 08:20 36.5 C 84 16 148/72 H 95 07/17/20 07:00 63 16 93 07/17/20 06:58 36.8 C 67 17 150/78 H 94 07/17/20 06:23 36.8 C 72 16 155/62 H 97 07/17/20 04:23 36.7 C 49 L 16 135/76 98 07/17/20 03:00 54 L 18 96 07/17/20 02:25 36.5 C 50 L 14 148/77 H 99 Laboratory Results Short CBC 07/17/20 Range/Units 08:43 WBC 14.79 H (4.8-10.8) K/uL Hgb 13.5 (12.0-16.0) g/dL Hct 40.3 (37-47) % Plt Count 281 (130-400) K/uL BMP 07/17/20 08:43 Sodium 137 Potassium 4.0 Chloride 106 Carbon Dioxide 24 BUN 6 L Creatinine 0.84 Glucose 154 H Calcium 9.3
[2020-07-18] MEDS ORDERED: bisacodyL 10 MG SUPP PR PRN (09:42)
--- NOTE | 2020-07-22 12:56 | Discharge Summary ---
Date of Service July 22, 2020 Admission HPI Per Admitting Provider This is a 60-year-old female presents with chronic persistent neck and arm symptoms after failing course of nonoperative care she is here for surgical invention. Principal Diagnosis Cervical spinal stenosis with myeloradiculopathy Discharge Data Allergies Allergy/AdvReac Type Severity Reaction Status Date / Time naproxen [From Naprosyn] Allergy Intermediate hives, Verified 07/16/20 06:39 tongue swells NSAIDS (Non-Steroidal AdvReac Mild due to Verified 07/16/20 06:39 Anti-Inflamma gastric bypass Consultations 07/16/20 11:29 Consult Hospitalist Routine Procedures Performed Operation Date: 07/16/20 07:45 Actual Procedures p C6-C7 Anterior Cervical Discectomy Fusion, C5 Corpectomy, Spinal Cord Mo edward - Jeb Frazier DO Ordered Studies 07/16/20 07:45 FL cervical 2-3V Routine FL fluoroscopy <1hr Routine Hospital Course (1) Cervical stenosis of spinal canal: Patient 1 anterior cervical decompression and fusion cholecystectomy orthopedic for postoperative. Postop day 1 she was swallowing well strength improved ILDA drain decreasing probably. Pain well controlled. Subsequent discharge home. Discharge orders instructions from the chart for further review. Total Time Total Time Spent Total Time Spent (In Minutes): 20 minutes Discharge Plan Discharge Items Patient Disposition: Home - Self-Care Reason For Visit: Spinal Stenosis, Cervical Region Discharge Diagnosis: Cervical spinal stenosis with myeloradiculopathy Activity: As commented below Bathing Comment: may shower 4/4 Exercise/Sports: None Non-emergency contact: Primary Care Provider Call non-emergency contact if: you have any medication questions Follow-up/Referrals: Margaret Dougherty DO [Primary Care Provider] - Diet: Regular Diet Comment: SOFT DIET Addtl Attending Provider Instructions: ACTIVITY RECOMMENDATIONS: SELF CARE INSTRUCTIONS AFTER CERVICAL FUSIONS 1. No smoking. Smoking drastically decreases the chance of a solid fusion. 2. No bending, lifting more than 5 pounds, or twisting (roll like a log when turning in bed). 3. You may shower 3 days after surgery. Thoroughly dry wound. Do not soak in the tub. 4. Cervical collar: Must be worn at all times including sleeping. You may remove the brace only to bath, eat and if you are sitting in a recliner. 5. Please walk as much as you can for exercise. Gradually increase the distance that you walk as your endurance increases. SPECIAL CARE INSTRUCTIONS: VERY IMPORTANT TO READ AND REVIEW A. Do not take any anti-inflammatory medications (i.e. Indocin, Advil, Aspirin, Naprosyn, Aleve, Motrin, etc.) as these may inhibit the chance of a solid fusion. Tylenol is okay to take. B. Your surgical incision has been closed with a cosmetic suture under the skin that will dissolve in about 6 weeks. In 14 days, you can use a pair of clean scissors and cut the suture that is left outside of the skin at the ends of your incision. C. Complications are uncommon, but please contact us if you have any signs or symptoms of: 1. wound infection (fever higher than 102.5 degrees F, redness, separation of wound, drainage, or increasing pain from the incision) 2. blood clots in legs (pain, swelling, redness and warmth in legs) 3. urinary tract infection (fever higher than 102.5 degrees, burning upon urination or increased frequency of urination) 4. nerve problems (inability to walk on your toes or heels, numbness, loss of bowel or bladder control) 5. any other symptoms that concern you. D. Please call the office at if you have any concerns or questions about your operation or recovery. MANAGING PAIN AFTER SPINAL SURGERY 1. Narcotic medication is intended for short-term use and will be provided for surgical pain. Surgical pain usually lasts for a period of 4-6 weeks. Narcotic medication includes Percocet, Vicodin, Darvocet, Tylenol #3 or Lortab. 2. Longer-term pain is more appropriately treated with non-narcotic medication such as Tylenol ES. 3. Muscle spasm is not appropriately treated with narcotics. Muscle relaxers such as Soma, Flexeril or Skelaxin can be used along with Tylenol ES. 4. Remember that we all live with some "aches and pains". This is not unusual or uncommon after an injury or as we get older. 5. We will provide appropriate medication within the normal guidelines of their prescribed use. We will also be very cautious and aware of potential abuse and extended duration of patients' medication needs. 6. Please allow 2-3 days to process refills. Prescriptions will not be mailed but must be picked up at the office. FOLLOW UP VISIT: Keep your scheduled follow-up appointment. Any questions, please call the office at . Pending Studies at Discharge: No Stand-Alone Forms: [facility], Opioid Pain Management, Smoking Cessation Medications and DC Order Prescriptions: New oxycodone 5 mg tablet 5 mg PO Q6H PRN (Reason: pain, severe) Qty: 14 RF: 0 tramadol 50 mg tablet 50 mg PO Q6H PRN (Reason: pain, moderate) Qty: 20 RF: 0 Continued polyethylene glycol 3350 [Miralax] 17 gram Powder In Packet 17 g PO QAM RF: 0 sucralfate 1 gram Tablet 1 g PO TID RF: 0 clonazepam 1 mg Tablet 1 mg PO BID PRN (Reason: Anxiety) RF: 0 Stool Softener 50 mg Capsule 50 mg PO BID RF: 0 pantoprazole 40 mg Tablet,Delayed Release (Dr/Ec) 40 mg PO QAM RF: 0 trazodone 150 mg Tablet 150 mg PO HS RF: 0 buspirone 30 mg Tablet 30 mg PO BID RF: 0 lisinopril 40 mg Tablet 40 mg PO QAM RF: 0 multivitamin Capsule 1 cap PO QAM RF: 0 diltiazem HCl 90 mg Tablet 90 mg PO TID RF: 0 escitalopram oxalate [Lexapro] 20 mg Tablet 20 mg PO HS RF: 0 rosuvastatin 10 mg Tablet 10 mg PO QAM RF: 0 gabapentin 300 mg Tablet 300 mg PO TID RF: 0 calcium citrate-vitamin D3 315 mg-6.25 mcg (250 unit) Tablet 1 tab PO TID RF: 0 Discharge Orders: Discharge Order (Routine); Ordered 07/17/20 Ordered By: Angelica Strange/Other Patient Handouts: DVT Post Op Prevention Admission Data Admit Date/Time: 07/16/20 10:02 Attending Provider: Jeb Frazier Admit Provider: Jeb Frazier Primary Care Provider: Margaret Dougherty Other Providers: Nelly Solis ; Javier Corona Other Interventions: Discharge Summary Assessment (RN) Last Done: 07/17/20 11:44
== END 2020-07-17 12:42 | disposition home or self-care (01) | DRG 472 ==
LOC: ASU 06:01 → 3E 10:02

== ENCOUNTER 2022-04-07 07:41 | Inpatient (IN) ==
--- NOTE | 2022-03-17 12:17 | PAT Medication Instructions ---
Medication Instructions Date of Service March 17, 2022 Home Medications buspirone 30 mg tablet 30 mg PO BID calcium citrate 315 mg calcium-vitamin D3 6.25 mcg (250 unit) tablet 1 tab PO TID clonazepam 1 mg tablet 1 mg PO BID PRN Anxiety diltiazem HCl 90 mg tablet 90 mg PO TID docusate sodium 50 mg capsule (Stool Softener) 50 mg PO BID escitalopram oxalate 20 mg tablet (Lexapro) 20 mg PO HS lisinopril 40 mg tablet 40 mg PO QAM polyethylene glycol 3350 17 gram oral powder packet (Miralax) 17 g PO QAM rosuvastatin 10 mg tablet 10 mg PO QAM trazodone 150 mg tablet 150 mg PO HS dexlansoprazole 60 mg capsule,biphase delayed release (Dexilant) 60 mg PO QAM famotidine 40 mg tablet 40 mg PO HS multivitamin 1 tab PO QAM DO NOT take the morning of surgery calcium citrate 315 mg calcium-vitamin D3 6.25 mcg (250 unit) tablet 1 tab PO TID docusate sodium 50 mg capsule (Stool Softener) 50 mg PO BID lisinopril 40 mg tablet 40 mg PO QAM polyethylene glycol 3350 17 gram oral powder packet (Miralax) 17 g PO QAM multivitamin 1 tab PO QAM Take morning of surgery With a small sip of water, OTHERWISE NOTHING TO EAT OR DRINK AFTER MIDNIGHT: buspirone 30 mg tablet 30 mg PO BID clonazepam 1 mg tablet 1 mg PO BID PRN Anxiety (if needed) diltiazem HCl 90 mg tablet 90 mg PO TID rosuvastatin 10 mg tablet 10 mg PO QAM dexlansoprazole 60 mg capsule,biphase delayed release (Dexilant) 60 mg PO QAM Take evening before surgery buspirone 30 mg tablet 30 mg PO BID calcium citrate 315 mg calcium-vitamin D3 6.25 mcg (250 unit) tablet 1 tab PO TID clonazepam 1 mg tablet 1 mg PO BID PRN Anxiety (if needed) diltiazem HCl 90 mg tablet 90 mg PO TID docusate sodium 50 mg capsule (Stool Softener) 50 mg PO BID escitalopram oxalate 20 mg tablet (Lexapro) 20 mg PO HS trazodone 150 mg tablet 150 mg PO HS famotidine 40 mg tablet 40 mg PO HS Other Notes If you have any questions please call us at [phone] or [phone] or [phone] or [phone]
--- NOTE | 2022-03-21 09:00 | Anesthesiology Consultation ---
Date of Service March 21, 2022 Assessment & Plan (1) Encounter for pre-operative examination: Plan - PCP pre-op appointment 03/22/22, JESSA Dougherty. - potential difficult intubation: C6-C7 ACDF, C6 corpectomy Grade 1 view, glidescope 3, ETT 7. - cardiology 01/02/22: "...well since last evaluation...some dizzy [sic] when she stands up suddenly but this is not new and not changing...supraventricular tachycardia...nonrheumatic mitral regurgitation: mild to moderate at this point in time...continue afterload reduction form of lisinopril and continue serial echocardiograms to evaluate cardiac dimensions and mitral regurgitation progression..." Chart Review Chart Review: Pending: Refer to Additional Notes / Consult section and Patient seen in Pre Admission Testing Teaching & Discussion Pre-Anesthesia Teaching/Discussion Notes: Instructed NPO after midnight before surgery, except medications with 15 cc of water. Medication instructions provided according to the PAT guidelines. History Surgery Operation Date: 04/07/22 11:25 Proposed Procedures p L2-L5 Decompression and Fusion, Spinal Cord Monitoring - Jeb Frazier DO Height/Weight Height: 5 ft 7 in Weight: 97.7 kg Allergies Allergy/AdvReac Type Severity Reaction Status Date / Time hydrocodone Allergy Intermediate itching Verified 03/21/22 09:24 naproxen [From Naprosyn] Allergy Intermediate hives, Verified 03/15/22 12:35 tongue swells NSAIDS (Non-Steroidal AdvReac Mild due to Verified 03/15/22 12:35 Anti-Inflamma gastric bypass colchicine Allergy Severe rash,tachyc Uncoded 03/21/22 09:24 ardia Medications Home Medications Medication Instructions Recorded Confirmed Last Taken buspirone 30 mg tablet 30 mg PO BID 06/23/20 03/15/22 07/15/20 19:00 calcium citrate 315 mg 1 tab PO TID 06/23/20 03/15/22 07/15/20 17:00 calcium-vitamin D3 6.25 mcg (250 unit) tablet clonazepam 1 mg tablet 1 mg PO BID PRN Anxiety 06/23/20 03/15/22 07/16/20 04:00 diltiazem HCl 90 mg tablet 90 mg PO TID 06/23/20 03/15/22 07/16/20 04:00 docusate sodium 50 mg capsule 50 mg PO BID 06/23/20 03/15/22 07/15/20 17:00 (Stool Softener) escitalopram oxalate 20 mg tablet 20 mg PO HS 06/23/20 03/15/22 07/15/20 19:00 (Lexapro) lisinopril 40 mg tablet 40 mg PO QAM 06/23/20 03/15/22 07/15/20 12:00 polyethylene glycol 3350 17 gram 17 g PO QAM 06/23/20 03/15/22 07/15/20 17:00 oral powder packet (Miralax) rosuvastatin 10 mg tablet 10 mg PO QAM 06/23/20 03/15/22 07/15/20 17:00 trazodone 150 mg tablet 150 mg PO HS 06/23/20 03/15/22 07/15/20 19:00 dexlansoprazole 60 mg 60 mg PO QAM 03/15/22 03/15/22 Unknown capsule,biphase delayed release (Dexilant) famotidine 40 mg tablet 40 mg PO HS 03/15/22 03/15/22 Unknown multivitamin 1 tab PO QAM 03/15/22 03/15/22 Unknown Past Medical History Medical History (Updated 03/21/22 @ 09:14 by Cyndy Garza PA-C) Anxiety Depression Expected difficult intubation s/p cervical spine fusion Family history of anesthesia complication dtr developed allergic rxn after surgery in past, pt believes it was tumor GERD (gastroesophageal reflux disease) controlled, stable per pt History of COVID-19 end of August 2021, [facility] 1hr[facility] test, not hosp; fatigue>resolved. History of difficult venous access "hard stick for IV's and blood work" History of paroxysmal supraventricular tachycardia f/u dr back, [facility] Hyperlipidemia Hypertension controlled, stable per pt Kidney stones Small, under observation, no issues currently. Obesity Sleep apnea pt denies after weight loss, snoring persists per pt and Thyroid nodule PCP monitoring with serial imaging Patient denies h/o stroke, seizures, heart attack, heart failure, DM, blood clots or blood transfusions. Exercise / Class Metabolic Activity II 4-5 Yardwork/Stairs/Walk up hill (denies CP or SOB with 1 FOS) Past Family History Family History Other Diabetes Hypertension Past Surgical History Surgical History (Updated 03/21/22 @ 08:52 by Cyndy Garza PA-C) History of arthroscopy of left shoulder History of carpal tunnel release of both wrists History of left knee replacement History of right knee joint replacement History of total left hip arthroplasty Hx of section 1980 Hx of colonoscopy Hx of esophagogastroduodenoscopy Hx of fusion of cervical spine C6-C7 ACDF, C6 corpectomy Grade 1 view, glidescope 3, ETT 7. Hx of gastric bypass 2009 Hx of hand surgery tips of fingers repaired from accident x 2 Hx of hysterectomy uterus/cervix only Past Anesthesia History No Hx of Anesthesia Complications and Other (daughter with allergic reaction (rash) with general surgery past; denies history of MH or PD) History of PONV No Hx of PONV and No Hx of Motion Sickness Social History Smoking Status: Former smoker Smoking cigarettes per day: 2-3 packs per day for 30+ years Do You Dip or Chew Tobacco: No Smoking End Date: 11-12 years ago Hx Alcohol Use: No Hx Substance Use: No substance use type: does not use Review of Systems Patient denies chest pain, shortness of breath, dyspnea on exertion, fever, chills, cough, wheezing, or palpitations. Physical Exam Vital Signs Vitals BP 121/74 P 68 TEMP 98.5 SP02 96% on RA RESP 18 Physical Full cervical extension range of motion without pain TMD 3.5 finger breadths Mallampati Score 1 Dentition: intact, denies chipped or loose teeth, caps/crowns, implants or bridges Lungs: normal respiratory effort. Clear throughout to auscultation, no adventitious breath sounds Cardiac: regular rate and rhythm, no murmurs noted Carotid arteries: negative bruit bilat Lab Results Anesthesia Preop Results Results Anesthesia Widget: WBC 7.49 K/ul (4.8-10.8) 03/21/22 Hgb 13.3 g/dl (12.0-16.0) 03/21/22 Hct 40.1 % (34.1-44.9) 03/21/22 Plt 301 K/uL (130-400) 03/21/22 Na 140 mmol/L (136-145) 03/21/22 K 4.2 mmol/L (3.5-5.1) 03/21/22 Cl 106 mmol/L (98-107) 03/21/22 CO2 27 mmol/L (21-32) 03/21/22 BUN 9 mg/dl (6-23) 03/21/22 Creat 0.72 mg/dl (0.6-1.2) 03/21/22 Glucose Level 71 mg/dl (70-99(Fasting)) 03/21/22 PT 10.7 Seconds (9.0-12.0) 03/21/22 PTT 25.4 Seconds (21.0-31.0) 03/21/22 INR 1.0 (0.9-1.1) 03/21/22 Urine Color Yellow 03/21/22 Urine Appearance Clear (Clear) 03/21/22 Urine pH 5.5 (4.5-7.5) 03/21/22 Urine Specific [place] 1.005 (1.000-1.030) 03/21/22 Urine Protein Negative (Negative) 03/21/22 Urine Glucose (UA) Negative (Negative) 03/21/22 Urine Ketones Negative (Negative) 03/21/22 Urine Blood Negative (Negative) 03/21/22 Urine Nitrite Negative (Negative) 03/21/22 Urine Bilirubin Negative (Negative) 03/21/22 Urine Urobilinogen Negative (Negative) 03/21/22 Urine Leukocyte Esterase Negative (Negative) 03/21/22 Blood Type A Positive 03/21/22 Antibody Screen NEGATIVE 03/21/22 Testing Electrocardiogram Date: 01/02/22 Sinus rhythm, rate 57 bpm Horizontal axis Chest X-Ray Date: 03/21/22 Cardiomediastinal and hilar silhouettes are within normal limits. There is no pneumothorax, pleural effusion, airspace consolidation or overt pulmonary edema. Calcified granuloma of the left lower lobe redemonstrated, 10 mm. Partially imaged cervical spinal fusion hardware. Degenerative changes of the shoulders and spine with sigmoidal thoracolumbar scoliosis. IMPRESSION: No acute process. Echocardiogram Date: 06/19/19 EF 55% Mild mitral regurgitation Mild tricuspid regurgitation, PASP 35mmHg Trivial circumferential pericardial effusion Stress Test Date: 02/15/17 Exercise No significant rest or stress induced MPI defects to suggest myocardial ischemia or infarction. Low risk study EF 60%. Normal LV wall motion COVID-19 Risk Screen Screening Information COVID-19 Screen Date: 03/21/22 Exposure 21 Days Family/Household +COVID Last 21 Days: No Exposure 10 Days Any COVID Exposure Last 10 Days: No Symptoms Last 10 Days Experienced COVID Sx Last 10 Days: No + COVID 0-90 Days COVID + in Last 0-90 Days: No
[~2022-04-07 07:41] MED LIST changes: -CeleBREX 200 MG CAP PO SCH
[2022-04-07] MEDS ORDERED: LIDOCAINE 2% MPF LOCAL 5 ML VIAL INFIL ONE (08:22)
[2022-04-07] MEDS ORDERED: PROPOFOL IV EMULSION 10 MG/ML 20 ML VIAL IV ONE (08:22)
[2022-04-07] MEDS ORDERED: ROCURONIUM BROMIDE 10 MG/ML 5 ML VIAL IV ONE ×4 (08:22→11:32)
[2022-04-07] MEDS ORDERED: DEXAMETHASONE SOD INJ 4 MG/ML VIAL ONE (08:22)
[2022-04-07] MEDS ORDERED: ONDANSETRON INJ 2 MG/ML 2 ML VIAL ONE ×2 (08:22→12:42)
[2022-04-07] MEDS ORDERED: MIDAZOLAM HCL 1 MG/ML 2ML VIAL ONE (08:27)
[2022-04-07] MEDS ORDERED: fentaNYL citrate 100 MCG/2 ML VIAL ONE ×2 (08:28→13:46)
--- NOTE | 2022-04-07 08:48 | History & Physical Bridge Note ---
Date of Service April 07, 2022 History & Physical Bridge Note I have examined the patient, reviewed the History & Physical and in the interval since the performance of the History & Physical I have noted the following changes of clinical significance: no changes noted
--- NOTE | 2022-04-07 08:50 | History & Physical Report ---
Date of Service April 07, 2022 Assessment & Plan (1) Neurogenic claudication due to lumbar spinal stenosis: Plan: L2-L5 decompression and fusion History of Present Illness Chief Complaint: Back and bilateral leg pain Primary Care Provider: Margaret Dougherty DO This 61-year-old female presents with chronic persistent back and bilateral knee pain. Failed extensive course of nonoperative care she is here for surgical invention. Allergies Allergy/AdvReac Type Severity Reaction Status Date / Time hydrocodone Allergy Intermediate itching Verified 04/07/22 08:19 naproxen [From Naprosyn] Allergy Intermediate hives, Verified 04/07/22 08:19 tongue swells colchicine Allergy RASH, Verified 04/07/22 08:19 TACHYCARDIA NSAIDS (Non-Steroidal AdvReac Mild due to Verified 04/07/22 08:19 Anti-Inflamma gastric bypass Home Medications Medication Instructions Recorded Confirmed Type buspirone 30 mg tablet 30 mg PO BID 06/23/20 04/07/22 History calcium citrate 315 mg 1 tab PO TID 06/23/20 04/07/22 History calcium-vitamin D3 6.25 mcg (250 unit) tablet clonazepam 1 mg tablet 1 mg PO BID PRN Anxiety 06/23/20 04/07/22 History diltiazem HCl 90 mg tablet 90 mg PO TID 06/23/20 04/07/22 History docusate sodium 50 mg capsule 50 mg PO BID 06/23/20 04/07/22 History (Stool Softener) escitalopram oxalate 20 mg tablet 20 mg PO HS 06/23/20 04/07/22 History (Lexapro) lisinopril 40 mg tablet 40 mg PO QAM 06/23/20 04/07/22 History polyethylene glycol 3350 17 gram 17 g PO QAM 06/23/20 04/07/22 History oral powder packet (Miralax) rosuvastatin 10 mg tablet 10 mg PO QAM 06/23/20 04/07/22 History trazodone 150 mg tablet 150 mg PO HS 06/23/20 04/07/22 History dexlansoprazole 60 mg 60 mg PO QAM 03/15/22 04/07/22 History capsule,biphase delayed release (Dexilant) famotidine 40 mg tablet 40 mg PO HS 03/15/22 04/07/22 History multivitamin 1 tab PO QAM 03/15/22 04/07/22 History Past Med/Surg History Medical History (Updated 04/07/22 @ 08:50 by Jeb Frazier, ) Anxiety Depression Expected difficult intubation s/p cervical spine fusion Family history of anesthesia complication dtr developed allergic rxn after surgery in past, pt believes it was tumor GERD (gastroesophageal reflux disease) controlled, stable per pt History of COVID-19 end of August 2021, [facility] 1[facility] test, not hosp; fatigue>resolved. History of difficult venous access "hard stick for IV's and blood work" History of paroxysmal supraventricular tachycardia f/u dr back, [facility] Hyperlipidemia Hypertension controlled, stable per pt Kidney stones Small, under observation, no issues currently. Obesity Sleep apnea pt denies after weight loss, snoring persists per pt and Thyroid nodule PCP monitoring with serial imaging Surgical History History of arthroscopy of left shoulder History of carpal tunnel release of both wrists History of left knee replacement History of right knee joint replacement History of total left hip arthroplasty Hx of section 1980 Hx of colonoscopy Hx of esophagogastroduodenoscopy Hx of fusion of cervical spine C6-C7 ACDF, C6 corpectomy Grade 1 view, glidescope 3, ETT 7. 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
[2022-04-07] MEDS ORDERED: ceFAZolin 330 MG/ML 1 GM VIAL ONE (09:17)
[2022-04-07] MEDS ORDERED: BUPIVACAINE/EPINEPHRINE 0.25% 1:200,000 30 ML VIAL ONE (09:17)
[2022-04-07] MEDS ORDERED: KETAMINE 50 MG/5 ML SYRINGE ONE (10:04)
[2022-04-07] MEDS ORDERED: HYDROmorphone INJ 2 MG/ML SYR/VIAL ONE (10:09)
[2022-04-07] MEDS ORDERED: SODIUM CHLORIDE 0.9% INJ 10 ML VIAL ONE (10:30)
[2022-04-07] MEDS ORDERED: ePHEDrine sulfate 50 MG/ML SYR ONE (10:30)
[2022-04-07] MEDS ORDERED: FLOSEAL HEMOSTATIC MATRIX 10ML TOP ONE (10:48)
[2022-04-07] MEDS ORDERED: ALBUMIN HUMAN 5% 12.5 GM/250 ML VIAL IV ONE (11:47)
[2022-04-07] MEDS ORDERED: SUCCINYLCHOLINE CHLORIDE 20 MG/ML 10 ML VIAL IV ONE (12:21)
[2022-04-07] MEDS ORDERED: NEOSTIGMINE METHYLSULFATE 1 MG/ML 10ML VIAL ONE (12:27)
[2022-04-07] MEDS ORDERED: GLYCOPYRROLATE 0.2 MG/ML VIAL ONE (12:27)
--- NOTE | 2022-04-07 12:41 | Operative Report ---
Post Operative Report Pre & Post Diagnosis Operation Date: 04/07/22 09:15 Pre-Op Diagnosis: Spinal Stenosis, Lumbar Region with Neurogenic Claudication Post-Op Diagnosis: Spinal Stenosis, Lumbar Region with Neurogenic Claudication I identified the patient and participated in the time-out.: Yes Procedure Operation Date: 04/07/22 09:15 Actual Procedures #1 lumbar compression bilateral medial facetectomies and foraminotomies L1-L2, L2-L3, L3-L4 and L4-L5. #2 posterior spinal fusion L2-L5. #3 placed posterior segmental instrumentation L2-L5. #4 interbody fusion L4-L5 #5 placement of Spira 12 x 26 mm cage at L4 for L5. 6 placement locally harvested morselized autograft and posterior gutters. #7 placement of I factor combined with V toss interbody space and posterior gutters. Surgeon Jeb Frazier, DO Tubing Assembler Uche Joseph Estimated Blood Loss 450 Findings See Below The patient is 5 foot 7 weighing over 96 kg with a BMI in excess of 33. Patient's body habitus did contribute to significant technical difficulty required deepest retractors longer instruments and draped in order to perform her procedure. This at least 50% increased operative time. Specimens None Indications This is a 61-year-old female presents above-mentioned diagnosis and failing since course of nonoperative care is here for the above-mentioned procedure. Description of Procedure Patient was met with identified informed consent obtained. Patient was then taken to the operative suite underwent a patient placed in a prone position on the Joseph table top of the Dash frame. All bony prominences well-padded eyes inspected to ensure no external pressure placed upon them. This point the lumbar spine was prepped and draped in normal sterile fashion. Sharp dissection with the assistance of Bovie cautery was performed down to and exposing the lamina transverse processes of L to L3-L4-L5 bilaterally. From caudal to cephalad fashion complete laminectomy of L4 L3 L2 partial laminectomy of L1 was performed including bilateral medial facetectomies and foraminotomies addressing severe spinal stenosis. Pedicle screws then placed in L2-L3 L4-5 bilaterally with assistance of fluoroscopy and appropriate sized nancy placed. By way of entrance foraminal approach on the left pleat discectomy of L4-L5 was performed endplates curetted to subcortical bleeding bone and a 12 x 26 mm spiral cage with I factor tapped in position. The rods then locked into final position bilaterally. The transverse processes of L2-L3 L4-5 burred to subcortical bleeding bone. I factor bone with V toss and locally harvested morselized autograft was placed in the posterior gutters. 15 round ILDA drain inserted. The incision was then closed with 1 Vicryl in the fascia 2-0 Vicryl subcutaneously and 4 Monocryl for final skin closure. Steri-Strip sterile dressings placed. Patient awakened and taken to PACU stable condition. Please note Uche Joseph was present at the entire procedure involved the patient positioning complex portions of the surgery and final skin closure. I attest to the content of the Intraoperative Record and any orders documented therein. Any exceptions are noted below.
--- NOTE | 2022-04-07 12:50 | Fluoroscopy Report ---
FL lumbar spine 2-3V CLINICAL HISTORY: L2-L5 DECOMPRESSION/FUSION COMPARISON STUDY: None. FLUOROSCOPY TIME: 42 seconds. FINDINGS: 3 fluoroscopic spot images of the lumbar spine demonstrate posterior decompression and fusi on from L2 through L5 with pedicle screws and rods. There is an L4-[address] The hardwa re appears intact. IMPRESSION: Fluoroscopic assistance provided for L2-L5 posterior decompression and fusion. ACT 112: Negative or not required by law. Electronically signed by: Ronaldo Cortez M.D. 04/07/2022 12:49 PM
[2022-04-07] MEDS ORDERED: SUGAMMADEX SODIUM 200 MG/2 ML VIAL IV ONE (13:06)
[2022-04-07] MEDS ORDERED: NALOXONE HCL 0.4 MG/1 ML VIAL/CARP ONE (13:14)
--- NOTE | 2022-04-07 13:34 | Anesthesiology Progress Note ---
Date of Service April 07, 2022 Anesthesia Post Procedure Vital Signs Vital Signs: Temp Pulse Pulse Resp BP Pulse Ox O2 Del Method 04/07/22 13:12 36.2 C L 65 10 L 159/71 H 99 Oxymask 04/07/22 08:14 36.7 C 65 20 151/84 H 97 Room Air O2 Flow Rate 04/07/22 13:12 10 04/07/22 08:14 Pain Intensity Back: Pain Intensity: 8 Transfer of Care Handoff Completed per policy
[2022-04-07] MEDS ORDERED: PROMETHAZINE HCL 6.25 MG in SODIUM CHLORIDE 0.9% 50 ML IV PRN (13:46)
[2022-04-07] MEDS ORDERED: ePHEDrine sulfate 50 MG/ML AMP IV PRN (13:46)
[2022-04-07] MEDS ORDERED: ATROPINE SULFATE 0.1 MG/ML 10ML SYR IV PRN (13:46)
[2022-04-07] MEDS ORDERED: HYDROmorphone INJ 1 MG/ML SYRINGE IV PRN ×2 (13:46→16:03)
[2022-04-07] MEDS ORDERED: ONDANSETRON INJ 2 MG/ML 2 ML VIAL IV PRN ×2 (13:46→16:03)
[2022-04-07] MEDS: fentaNYL citrate 100 MCG/2 ML VIAL IV PRN ×3 (13:48→14:53)
[2022-04-07] MEDS ORDERED: bisacodyL 10 MG SUPP PR PRN (16:03)
[2022-04-07] MEDS ORDERED: DO NOT ADMINISTER PNEUMOCOCCAL VACCINE PRN (16:03)
[2022-04-07] MEDS ORDERED: SOD PHOSPHATE/SOD BIPHOSPHATE ENEMA 132 ML BTL PR PRN (16:03)
[2022-04-07] MEDS ORDERED: diphenhydrAMINE Capsule 25 MG CAP PO PRN (16:03)
[2022-04-07] MEDS ORDERED: PROMETHAZINE HCL 12.5 MG in SODIUM CHLORIDE 0.9% 50 ML IV PRN (16:03)
[2022-04-07] MEDS ORDERED: HYDROmorphone INJ 0.5 MG/0.5 ML SYR IV PRN (16:03)
[2022-04-07] MEDS ORDERED: MAGNESIUM HYDROXIDE SUSP 30 ML UDC PO PRN (16:03)
[2022-04-07] MEDS ORDERED: ACETAMINOPHEN 1,000 MG/100 ML VIAL IV PRN (16:03)
[2022-04-07] MEDS ORDERED: ONDANSETRON 4 MG OD TAB PO PRN (16:03)
[2022-04-07] MEDS ORDERED: NALOXONE HCL 0.4 MG/1 ML VIAL/CARP IV PRN (16:03)
[2022-04-07] MEDS ORDERED: DO NOT ADMINISTER FLU VACCINE PRN (16:03)
[2022-04-07] MEDS ORDERED: hydrOXYzine HCl 25 MG TAB PO PRN (16:03)
[2022-04-07] MEDS ORDERED: FAMOTIDINE 20 MG TAB PO PRN (16:03)
[2022-04-07] MEDS ORDERED: ALUMINUM/MAGNESIUM SUSP 30 ML UDC PO PRN (16:03)
[2022-04-07] MEDS ORDERED: clonazePAM 1 MG TAB PO PRN (16:03)
[2022-04-07] MEDS ORDERED: LORazepam 2 MG/1 ML VIAL IV PRN (16:03)
[2022-04-07] MEDS ORDERED: METOCLOPRAMIDE HCL INJ 5 MG/ML 2 ML VIAL IV PRN (16:03)
[2022-04-07] MEDS: LACTATED RINGER'S 1,000 ML IV SCH ×2 (16:23→23:05)
[2022-04-07] MEDS: oxyCODONE HCL IR 5 MG TAB (IMMEDIATE RELEASE) PO PRN (16:27)
--- NOTE | 2022-04-07 16:52 | Consultation ---
Date of Consultation April 07, 2022 Assessment & Plan (1) Neurogenic claudication due to lumbar spinal stenosis: (2) Hypertension: (3) Hyperlipidemia: (4) Sleep apnea: (5) Anxiety: (6) Depression: (7) History of paroxysmal supraventricular tachycardia: Plan Ms. Bautista is a 61 year old female that underwent a decompression and fusion surgery today to L1-L2, L2-L3, L3-L4 and L4-L5 after failed non-operative conservative management. Additional PMH includes: HTN, H/O SVT, HLD, anxiety/depression and GERD. Patient did well intraoperatively; did require a dose of Narcan in the PACU. When I saw the patient she was drowsy but arousable, she had just received a dose of pain medication 30 minutes before I entered the room. Neurogenic claudication due to lumbar spinal stenosis: POD# 0 s/p decompression and fusion surgery with Dr. Frazier. Per ortho for pain control, wound care, anticoagulation and activities. Monitor H&H; baseline Hgb on 03/18 pre-op was 13.3; trend in AM labs ILDA drain x1 with bloody drainage continue incentive spirometry, asked nurse to provide her with an ISP PT/OT when appropriate HTN: H/O SVT: Takes Lisinopril, and Diltiazem normotensive post-operatively Patient with regular heart rate postop; patient states last episode of SVT was more than 1 year ago HLD: On Rosuvastatin; continue Anxiety and depression: Takes Buspirone and Lexapro; continue takes clonazepam PRN; continue GERD: Takes famotidine and Dexilant; continue Disposition: PCP: in [place] Code Status: Full Code VTE Prophylaxis: teds and SCDS for now I personally was able to review all current laboratory work and diagnostic images obtained in the ED. Additionally, I was able to review the patients past medication reconciliation and history with direct visualization in the patients chart. This patient was seen in collaboration with Dr. Corona. Please see his addendum for further details. Supervising Physician Co-Signing Physician Notes Attending addendum: The patient was seen and examined in medical floor She is status post lumbar decompression fusion and complains to have some pain at the back and is still not completely out of anesthetics effects Has any numbness and or tingling in the extremities and does not have any other significant symptoms On examination Lying in bed comfortably Hemodynamically stable with blood pressure on the upper side at 146/79 Chest-clear to auscultate bilateral Heart-S1, S2 regular Abdomen-benign Extremities-negative for any edema CURB SETTER-alert, awake and oriented x3 However preadmission labs, EKG and imaging studies reviewed Remains medically stable following lumbar decompression and fusion Agree with assessment plan as outlined above by Yue Corona History of Present Illness Requesting Physician: Dr. Frazier Reason for Consultation: post operative medical consultation Attending Physician: Jeb Frazier DO History of Present Illness Ms. Bautista is a 61 year old female that underwent a decompression and fusion surgery today to L1-L2, L2-L3, L3-L4 and L4-L5 after failed non-operative conservative management. Additional PMH includes: HTN, H/O SVT, HLD, anxiety/depression and GERD. Patient did well in traoperatively; did require a dose of Narcan in the PACU. When I saw the patient she was drowsy but arousable, she had just received a dose of pain medication 30 minutes before I entered the room. Patient denies GALINDO, dizziness, SOB, CP, palpitations, N/V/D, numbness or tingling in lower extremities. Patient has tolerated clear liquids and pudding. She will remain on IV fluids and with indwelling Almanza catheter until more awake. Thank you kindly for allowing [facility] to be involved with this patients care. We are available 06/11 via tiger text for any additional assistance we can provide. Allergies Allergy/AdvReac Type Severity Reaction Status Date / Time hydrocodone Allergy Intermediate itching Verified 04/07/22 08:19 naproxen [From Naprosyn] Allergy Intermediate hives, Verified 04/07/22 08:19 tongue swells colchicine Allergy RASH, Verified 04/07/22 08:19 TACHYCARDIA NSAIDS (Non-Steroidal AdvReac Mild due to Verified 04/07/22 08:19 Anti-Inflamma gastric bypass Home Medications Medication Instructions Recorded Confirmed Type buspirone 30 mg tablet 30 mg PO BID 06/23/20 04/07/22 History calcium citrate 315 mg 1 tab PO TID 06/23/20 04/07/22 History calcium-vitamin D3 6.25 mcg (250 unit) tablet clonazepam 1 mg tablet 1 mg PO BID PRN Anxiety 03/10/21 12/23/22 History diltiazem HCl 90 mg tablet 90 mg PO TID 06/23/20 04/07/22 History docusate sodium 50 mg capsule 50 mg PO BID 06/23/20 04/07/22 History (Stool Softener) escitalopram oxalate 20 mg tablet 20 mg PO HS 06/23/20 04/07/22 History (Lexapro) lisinopril 40 mg tablet 40 mg PO QAM 06/23/20 04/07/22 History polyethylene glycol 3350 17 gram 17 g PO QAM 06/23/20 04/07/22 History oral powder packet (Miralax) rosuvastatin 10 mg tablet 10 mg PO QAM 06/23/20 04/07/22 History trazodone 150 mg tablet 150 mg PO HS 06/23/20 04/07/22 History dexlansoprazole 60 mg 60 mg PO QAM 03/15/22 04/07/22 History capsule,biphase delayed release (Dexilant) famotidine 40 mg tablet 40 mg PO HS 03/15/22 04/07/22 History multivitamin 1 tab PO QAM 03/15/22 04/07/22 History Patient History Medical History Anxiety Depression Expected difficult intubation s/p cervical spine fusion Family history of anesthesia complication dtr developed allergic rxn after surgery in past, pt believes it was tumor GERD (gastroesophageal reflux disease) controlled, stable per pt History of COVID-19 end of August 2021, [facility] 1hr. test, not hosp; fatigue>resolved. History of difficult venous access "hard stick for IV's and blood work" History of paroxysmal supraventricular tachycardia f/u dr back, [facility] Hyperlipidemia Hypertension controlled, stable per pt Kidney stones Small, under observation, no issues currently. Obesity Sleep apnea pt denies after weight loss, snoring persists per pt and Thyroid nodule PCP monitoring with serial imaging Surgical History History of arthroscopy of left shoulder History of carpal tunnel release of both wrists History of left knee replacement History of right knee joint replacement History of total left hip arthroplasty Hx of section 1981 Hx of colonoscopy Hx of esophagogastroduodenoscopy Hx of fusion of cervical spine C6-C7 ACDF, C6 corpectomy Grade 1 view, glidescope 3, ETT 7. 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 Resp: (-) SOB GI: (-) appetite changes, N/V/D, bowel changes : (-) urinary changes Skin: (-) rashes Psych: (+) anxiety, depression Physical Exam Physical Exam: Neuro: AAOx4, PERRLA, no aphagia, memory changes, CNII-XII grossly intact. Patient is groggy, but arousable and able to answer questions. Did receive pain medications. HEENT: head normocephalic, moist mucus membranes CV: S1/S2, (-) M/G/R, (-) edema, cap refill < 3 seconds, ILDA drain x1 with bloody drainage Resp: Lungs CTA in all lópez. On RA GI: Abdomen S/NT/ND, Ax4 bowel sounds, (-) CVA tenderness Musculoskeletal: 5/5 B/L UE strength, 5/5 B/L LE strength. No gait disturbance Skin: (-) rashes , (-) erythema dressing intact on lower back. Psych: euthymic mood Results & Data ([facility]) Vital Signs (Past 12 Hours) Vital Signs Temp Pulse Pulse Resp BP BP Pulse Ox 04/07/22 16:26 36.4 C L 61 18 147/74 H 99 04/07/22 15:30 04/07/22 15:20 65 16 125/53 L 95 04/07/22 14:50 59 L 12 127/44 L 94 04/07/22 14:20 36.5 C 64 18 128/40 L 96 04/07/22 14:10 63 13 109/47 L 97 04/07/22 14:00 59 L 17 121/45 L 97 04/07/22 13:50 71 19 128/50 L 94 04/07/22 13:40 66 20 135/63 94 04/07/22 13:30 69 17 139/56 L 97 04/07/22 13:20 66 19 159/71 H 159/71 H 98 04/07/22 13:12 36.2 C L 65 10 L 159/71 H 99 04/07/22 08:14 36.7 C 65 20 151/84 H 97 O2 Del Method O2 Flow Rate 04/07/22 16:26 Nasal Cannula 2 04/07/22 15:30 Nasal Cannula 3 04/07/22 15:20 Nasal Cannula 4 04/07/22 14:50 Nasal Cannula 4 04/07/22 14:20 Nasal Cannula 4 04/07/22 14:10 Nasal Cannula 4 04/07/22 14:00 Nasal Cannula 4 04/07/22 13:50 Nasal Cannula 4 04/07/22 13:40 Oxymask 4 04/07/22 13:30 Oxymask 10 04/07/22 13:20 Oxymask 10 04/07/22 13:12 Oxymask 10 04/07/22 08:14 Room Air Diagnostic Findings Lumbar Spine X-Ray 04/07/22 09:15 FL lumbar spine 2-3V CLINICAL HISTORY: L2-L5 DECOMPRESSION/FUSION COMPARISON STUDY: None. FLUOROSCOPY TIME: 42 seconds. FINDINGS: 3 fluoroscopic spot images of the lumbar spine demonstrate posterior decompression and fusion from L2 through L5 with pedicle screws and rods. There is an L4-[address] The hardware appears intact. IMPRESSION: Fluoroscopic assistance provided for L2-L5 posterior decompression and fusion. ACT 112: Negative or not required by law. Electronically signed by: Ronaldo Cortez M.D. 04/07/2022 12:49 PM
[2022-04-07] MEDS: ceFAZolin 2000MG 2,000 MG/15 ML SYR IV SCH (17:52)
[2022-04-07] MEDS: traZODone HCL 50 MG TAB PO SCH (20:01)
[2022-04-07] MEDS: FAMOTIDINE 40 MG TABLET PO SCH (20:01)
[2022-04-07] MEDS: ESCITALOPRAM OXALATE 20 MG TAB PO SCH (20:01)
[2022-04-07] MEDS: DOCUSATE SODIUM/SENNA 50/8.6MG TAB PO SCH (20:01)
[2022-04-07] MEDS: busPIRone 15 MG TAB PO SCH (20:01)
[2022-04-07] MEDS: CALCIUM 600MG + VIT D 400 IU TAB PO SCH (20:01)
[2022-04-07] MEDS: dilTIAZem HCl 60 MG TAB PO SCH (20:02)
[2022-04-07] MEDS: traMADol HCL 50 MG TABLET PO PRN (20:06)
[2022-04-07] MEDS ORDERED: NON-FORMULARY MEDICATION (Docusate Sodium [Stool Softener] 50 mg Capsule) PO SCH (21:00)
[2022-04-08] MEDS: ACETAMINOPHEN 500 MG TAB PO PRN ×3 (00:10→18:34)
[2022-04-08] MEDS: oxyCODONE HCL IR 5 MG TAB (IMMEDIATE RELEASE) PO PRN ×3 (00:11→14:01)
[2022-04-08] MEDS: traMADol HCL 50 MG TABLET PO PRN ×2 (03:50→10:02)
[2022-04-08] MEDS: ceFAZolin 2000MG 2,000 MG/15 ML SYR IV SCH (03:51)
[2022-04-08] MEDS: LACTATED RINGER'S 1,000 ML IV SCH ×2 (05:58→07:39)
[2022-04-08] MEDS: POLYETHYLENE (MIRALAX) 17 GM PACK PO SCH ×3 (05:58→17:56)
[2022-04-08] MEDS: dexAMETHasone 6 MG in SYRINGE 0 ML IV SCH (08:24)
--- NOTE | 2022-04-08 08:24 | Hospitalist Progress Note ---
Date of Service April 08, 2022 Assessment & Plan (1) Neurogenic claudication due to lumbar spinal stenosis: (2) Hypertension: (3) Hyperlipidemia: (4) Sleep apnea: (5) Anxiety: (6) Depression: (7) History of paroxysmal supraventricular tachycardia: Plan Ms. Bautista is a 61 yo F that underwent a decompression and fusion surgery today to L1-L2, L2-L3, L3-L4 and L4-L5 after failed non-operative conservative management. Additional PMH includes: HTN, H/O SVT, HLD, anxiety/depression and GERD. Neurogenic claudication due to lumbar spinal stenosis: POD# 1 s/p decompression and fusion surgery with Dr. Frazier (on 04/07/22) Per ortho for pain control, wound care, anticoagulation and activities. ILDA drain x1 with serosang. drainage continue incentive spirometry PT/OT Acute blood loss anemia, postop, versus dilutional -Expected, no need for transfusion baseline Hgb on 03/18 pre-op was ~13, now down to 10.7 -Continue to monitor H&H HTN: H/O SVT: Takes Lisinopril, and Diltiazem normotensive post-operatively Patient with regular heart rate postop; patient states last episode of SVT was more than 1 year ago HLD: On Rosuvastatin; continue Anxiety and depression: Takes Buspirone and Lexapro; continue takes clonazepam PRN; continue GERD: Takes famotidine and Dexilant; continue Disposition: PCP: in [place] Code Status: Full Code VTE Prophylaxis: teds and SCDS for now/ per ortho Admission and Anticipated Discharge Date Admission Date: April 07, 2022 Subjective Patient seen in follow-up of consultation after lumbar spine surgery Currently lying in bed, in no acute distress Pain seems to be well controlled Already worked with physical therapy today Almanza catheter removed, and patient has been voiding, no BM yet No fevers chills chest pain shortness of breath no abdominal pain nausea vomiting Review of Systems Review of Systems: All systems reviewed & are unremarkable except as noted in Subjective Physical Exam Physical Exam: General : WD/WN F in NAD HEENT: NC/AT, moist mucus membranes CV: S1/S2, (-) M/G/R, (-) edema, ILDA drain x1 with serosang. drainage Resp: Lungs CTA in all lópez. On RA GI: Abdomen S/NT/ND, Ax4 bowel sounds, (-) CVA tenderness Musculoskeletal: moves extremities Skin: warm, dry, dressing intact on lower back. Neuro: AAOx4, PERRL, speech fluent, moves extremities Results & Data Results & Data ([facility]) Vital Signs (Past 12 Hours) Vital Signs Temp Pulse Pulse Resp BP Pulse Ox O2 Del Method 04/08/22 07:25 36.9 C 68 18 118/71 96 Room Air 04/08/22 03:58 36.6 C 77 16 149/82 H 93 Room Air 04/07/22 23:53 36.6 C 68 16 154/74 H 93 Room Air 04/07/22 22:27 36.4 C L 66 18 123/75 96 Room Air Laboratory Results 04/08/22 04/08/22 04/07/22 Range/Units 09:12 09:12 17:14 WBC 14.80 H (4.8-10.8) K/ul RBC 3.56 L (3.93-5.22) M/uL Hgb 10.7 L (12.0-16.0) g/dl Hct 30.9 L (34.1-44.9) % MCV 86.8 (80.0-100.0) fL MCH 30.1 (25.0-34.0) pg MCHC 34.6 (32.0-36.0) g/dL RDW Std Deviation 41.6 (36.4-46.3) fL RDW Coeff of Chen 13.1 (11.5-14.5) % Plt Count 267 (130-400) K/uL MPV 10.3 (9.4-12.3) fL Immature Gran % (Auto) 0.6 % Neut % (Auto) 79.2 % Lymph % (Auto) 10.0 % Long % (Auto) 10.1 % Eos % (Auto) 0.0 % Baso % (Auto) 0.1 % Neut # (Auto) 11.72 H (1.4-6.5) K/uL Lymph # (Auto) 1.48 (1.2-3.4) K/uL Long # (Auto) 1.49 H (0.24-0.82) K/uL Eos # (Auto) 0.00 (0-0.50) K/uL Baso # (Auto) 0.02 (0-0.2) K/uL Immature Gran # (Auto) 0.09 H (0.00-0.02) K/uL Sodium 137 (136-145) mmol/L Potassium 4.0 (3.5-5.1) mmol/L Chloride 103 (98-107) mmol/L Carbon Dioxide 27 (21-32) mmol/L Anion Gap 7 (3-11) BUN 11 (6-23) mg/dl Creatinine 0.66 (0.6-1.2) mg/dl Est Cr Clr Drug Dosing 104.3 ml/min Est GFR ( Amer) 109.0 ml/min Est GFR (Non-Af Amer) 94.0 ml/min BUN/Creatinine Ratio 16.7 (10-20) Glucose 121 H (70-99(Fasting)) mg/dl POC Glucose 179 H (70-99) mg/dl Calcium 8.7 (8.5-10.1) mg/dl Medications Administered Current Inpatient Medications Acetaminophen (Acetaminophen 500 Mg Tab) 1,000 mg PO Q8H PRN PRN Reason: MILD Pain Scale 1,2,3 & Pre PT Stop: 05/07/22 16:02 Last Admin: 04/08/22 00:10 Dose: 1,000 mg Al Hydrox/Mg Hydrox/Simethicone (Aluminum/Magnesium Susp 30 Ml Udc) 30 ml PO Q6H PRN PRN Reason: Dyspepsia Stop: 05/07/22 16:02 Bisacodyl (Bisacodyl 10 Mg Supp) 10 mg [place] DAILY PRN PRN Reason: Constipation Stop: 05/07/22 16:02 Buspirone HCl (Buspirone 15 Mg Tab) 30 mg PO BID [facility] Stop: 05/07/22 20:59 Last Admin: 04/07/22 20:01 Dose: 30 mg Calcium/Vitamin D (Calcium 600mg + Vit D 400 Iu Tab) 1 tab PO TID [facility] Stop: 05/07/22 20:59 Last Admin: 04/07/22 20:01 Dose: 1 tab Diltiazem HCl (Diltiazem Hcl 60 Mg Tab) 90 mg PO TID [facility] Stop: 05/07/22 20:59 Last Admin: 04/07/22 20:02 Dose: 90 mg Diphenhydramine HCl (Diphenhydramine Capsule 25 Mg Cap) 25 mg PO Q6H PRN PRN Reason: Allergic Rhinitis/Insomnia Stop: 05/07/22 16:02 Escitalopram Oxalate (Escitalopram Oxalate 20 Mg Tab) 20 mg PO HS [facility] Stop: 05/07/22 20:59 Last Admin: 04/07/22 20:01 Dose: 20 mg Famotidine (Famotidine 40 Mg Tablet) 40 mg PO HS [facility] Stop: 05/07/22 20:59 Last Admin: 04/07/22 20:01 Dose: 40 mg Famotidine (Famotidine 20 Mg Tab) 20 mg PO Q12H PRN PRN Reason: Dyspepsia Stop: 05/07/22 16:02 Last Admin: 04/08/22 06:04 Dose: 20 mg Hydromorphone HCl (Hydromorphone Inj 0.5 Mg/0.5 Ml Syr) 0.5 mg IV Q3H PRN PRN Reason: MODERATE Pain (Scale 4,5,6) & Pre PT Stop: 04/21/22 16:02 Hydromorphone HCl (Hydromorphone Inj 1 Mg/Ml Syringe) 1 mg IV Q3H PRN PRN Reason: SEVERE Pain (Scale 7,8,9,10) Stop: 04/21/22 16:02 Hydroxyzine HCl (Hydroxyzine Hcl 25 Mg Tab) 25 mg PO Q8H PRN PRN Reason: Anxiety Stop: 05/07/22 16:02 Lactated Ringer's (Lr) 1,000 mls @ 150 mls/hr IV .Q6H40M [facility] Stop: 05/07/22 16:02 Last Infusion: 04/08/22 05:58 Dose: Infused Promethazine HCl 12.5 mg/ (Sodium Chloride) 50.5 mls @ 202 mls/hr IV Q6H PRN PRN Reason: Nausea &/or Vomiting Stop: 05/07/22 16:02 Acetaminophen (Ofirmev) 1,000 mg in 100 mls @ 400 mls/hr IV Q8H PRN PRN Reason: Pain Rating 1-3 & Pre PT Stop: 04/08/22 16:04 Dexamethasone 6 mg/ Syringe 1.5 mls @ 1 mls/min IV DAILY [facility] Stop: 04/10/22 09:02 Influenza Virus Vaccine Quadrival (Do Not Administer Flu Vaccine) 1 each N/A PRN PRN PRN Reason: Notification Stop: 05/07/22 16:02 Lisinopril (Lisinopril 40 Mg Tab) [facility] [place] Stop: 05/08/22 08:59 Lorazepam (Lorazepam 0.5 Mg Tab) 0.5 mg PO Q8H PRN PRN Reason: Sedation/Anxiety Stop: 05/07/22 16:02 Lorazepam (Lorazepam 2 Mg/1 Ml Vial) 0.5 mg IV Q8H PRN PRN Reason: Sedation/Anxiety Stop: 05/07/22 16:02 Magnesium Hydroxide (Magnesium Hydroxide Susp 30 Ml Udc) 30 ml PO Q24H PRN PRN Reason: Constipation Stop: 05/07/22 16:02 Metoclopramide HCl (Metoclopramide Hcl Inj 5 Mg/Ml 2 Ml Vial) 10 mg IV Q6H PRN PRN Reason: Nausea &/or Vomiting Stop: 05/07/22 16:02 Multivitamins (Multivitamin Tab) 1 tab PO [facility] Stop: 05/08/22 08:59 Naloxone HCl (Naloxone Hcl 0.4 Mg/1 Ml Vial/Carp) 0.1 mg IV Q5M PRN PRN Reason: Oversedation/Resp depression Stop: 05/07/22 16:02 Ondansetron HCl (Ondansetron Inj 2 Mg/Ml 2 Ml Vial) 4 mg IV Q6H PRN PRN Reason: Nausea &/or Vomiting Stop: 05/07/22 16:02 Ondansetron HCl (Ondansetron 4 Mg Od Tab) 4 mg PO Q6H PRN PRN Reason: Nausea Stop: 05/07/22 16:02 Oxycodone HCl (Oxycodone Hcl Ir 5 Mg Tab (Immediate Release)) 5 - 10 mg PO Q4H PRN PRN Reason: Pain & Pre PT Stop: 04/21/22 16:02 Last Admin: 04/08/22 06:46 Dose: 10 mg Pantoprazole Sodium (Pantoprazole 40 Mg Tab) 40 [facility] [place] Stop: 05/08/22 08:59 Pneumococcal Polyvalent Vaccine (Do Not Administer Pneumococcal Vaccine) 1 each N/A PRN PRN PRN Reason: Notification Stop: 05/07/22 16:02 Polyethylene Glycol (Polyethylene (Miralax) 17 Gm Pack) 17 gm PO Q6 [facility] Stop: 05/08/22 05:59 Last Admin: 04/08/22 05:58 Dose: 17 gm Rosuvastatin Calcium (Rosuvastatin Calcium 10 Mg Tab) 10 mg PO QAM [facility] Stop: 05/08/22 08:59 Senna/Docusate Sodium (Docusate Sodium/Senna 50/8.6mg Tab) 2 tab PO HS [facility] Stop: 05/07/22 20:59 Last Admin: 04/07/22 20:01 Dose: 2 tab Sodium Biphosphate/Sodium Phosphate (Sod Phosphate/Sod Biphosphate Enema 132 Ml Btl) 132 ml [place] ONE PRN PRN Reason: Constipation Stop: 05/07/22 16:02 Tramadol HCl (Tramadol Hcl 50 Mg Tablet) 50 - 100 mg PO Q4H PRN PRN Reason: Moderate-Severe pain & Pre PT Stop: 05/07/22 16:02 Last Admin: 04/08/22 03:50 Dose: 100 mg Trazodone HCl (Trazodone Hcl 50 Mg Tab) 150 mg PO [facility] Stop: 05/07/22 20:59 Last Admin: 04/07/22 20:01 Dose: 150 mg
[2022-04-08] MEDS: dilTIAZem HCl 60 MG TAB PO SCH ×3 (08:26→20:34)
[2022-04-08] MEDS: busPIRone 15 MG TAB PO SCH ×2 (08:26→20:38)
[2022-04-08] MEDS: MULTIVITAMIN TAB PO SCH (08:27)
[2022-04-08] MEDS: lisinopril 40 MG TAB PO SCH (08:27)
[2022-04-08] MEDS: ROSUVASTATIN CALCIUM 10 MG TAB PO SCH (08:27)
[2022-04-08] MEDS: PANTOprazole 40 MG TAB PO SCH (08:27)
[2022-04-08] MEDS: CALCIUM 600MG + VIT D 400 IU TAB PO SCH ×3 (08:28→20:34)
[2022-04-08] MEDS ORDERED: POLYETHYLENE (MIRALAX) 17 GM PACK PO SCH (09:00)
[2022-04-08 09:20] LABS: Basophils # (auto) 0.02 K/uL (0-0.2); Basophils % (auto) 0.1 %; Hematocrit (blood only) 30.9 % (34.1-44.9); Hemoglobin 10.7 g/dl (12.0-16.0); Immature Granulocytes # (auto) 0.09 K/uL (0.00-0.02); Immature Granulocytes % (auto) 0.6 %; Lymphocytes # (auto) 1.48 K/uL (1.2-3.4); Mean Corpuscular Hemoglobin 30.1 pg (25.0-34.0); Mean Corpuscular Hgb Conc 34.6 g/dL (32.0-36.0); Mean Corpuscular Volume 86.8 fL (80.0-100.0); Mean Platelet Volume 10.3 fL (9.4-12.3); Monocytes # (auto) 1.49 K/uL (0.24-0.82); Monocytes % (auto) 10.1 %; Neutrophils # (auto) 11.72 K/uL (1.4-6.5); Neutrophils % (auto) 79.2 %; Platelet Count 267 K/uL (130-400); RDW Coefficient of Variation 13.1 % (11.5-14.5); RDW Standard Deviation 41.6 fL (36.4-46.3); Red Blood Count 3.56 M/uL (3.93-5.22)
[2022-04-08 09:38] LABS: BUN Creatinine Ratio 16.7 (10-20); Calcium 8.7 mg/dl (8.5-10.1); Creatinine Clr Calc Pharmacy 104.3 ml/min
--- NOTE | 2022-04-08 10:36 | Orthopedic Progress Note ---
Date of Service April 08, 2022 Assessment & Plan (1) Neurogenic claudication due to lumbar spinal stenosis: Plan: Today we will initiate physical therapy occupational therapy assess her progress hopefully discharge home early next week. Admission and Anticipated Discharge Date Admission Date: April 07, 2022 Subjective Patient's back pain is controlled leg symptoms improved Physical Exam Physical Exam: On exam she is comfortable. Is constricted testing. Results & Data ([facility]) Vital Signs (Past 12 Hours) Vital Signs Temp Pulse Pulse Resp BP Pulse Ox O2 Del Method 04/08/22 07:25 36.9 C 68 18 118/71 96 Room Air 04/08/22 03:58 36.6 C 77 16 149/82 H 93 Room Air 04/07/22 23:53 36.6 C 68 16 154/74 H 93 Room Air
[2022-04-08] MEDS: LORazepam 0.5 MG TAB PO PRN (14:38)
[2022-04-08] MEDS: ESCITALOPRAM OXALATE 20 MG TAB PO SCH (20:36)
[2022-04-08] MEDS: DOCUSATE SODIUM/SENNA 50/8.6MG TAB PO SCH (20:37)
[2022-04-08] MEDS: FAMOTIDINE 40 MG TABLET PO SCH (20:37)
[2022-04-08] MEDS: traZODone HCL 50 MG TAB PO SCH (20:37)
[2022-04-09] MEDS: traMADol HCL 50 MG TABLET PO PRN (04:58)
[2022-04-09] MEDS: POLYETHYLENE (MIRALAX) 17 GM PACK PO SCH ×4 (06:03→17:26)
[2022-04-09 06:54] LABS: Hematocrit (blood only) 30.5 % (34.1-44.9); Hemoglobin 10.3 g/dl (12.0-16.0); Mean Corpuscular Hemoglobin 29.7 pg (25.0-34.0); Mean Corpuscular Hgb Conc 33.8 g/dL (32.0-36.0); Mean Corpuscular Volume 87.9 fL (80.0-100.0); Mean Platelet Volume 10.8 fL (9.4-12.3); Platelet Count 263 K/uL (130-400); RDW Coefficient of Variation 13.5 % (11.5-14.5); RDW Standard Deviation 43.4 fL (36.4-46.3); Red Blood Count 3.47 M/uL (3.93-5.22); White Blood Count 15.63 K/ul (4.8-10.8)
[2022-04-09 07:15] LABS: Calcium 8.6 mg/dl (8.5-10.1); Creatinine Clr Calc Pharmacy 118.7 ml/min; Est GFR (African American) 113.7 ml/min; Est GFR (Non-African American) 98.1 ml/min; Potassium 3.7 mmol/L (3.5-5.1)
[2022-04-09] MEDS: ACETAMINOPHEN 500 MG TAB PO PRN ×2 (07:28→16:38)
[2022-04-09] MEDS: LORazepam 0.5 MG TAB PO PRN (07:28)
[2022-04-09] MEDS: oxyCODONE HCL IR 5 MG TAB (IMMEDIATE RELEASE) PO PRN ×4 (07:29→20:38)
[2022-04-09] MEDS: busPIRone 15 MG TAB PO SCH ×2 (08:01→20:08)
[2022-04-09] MEDS: dilTIAZem HCl 60 MG TAB PO SCH ×3 (08:02→20:09)
[2022-04-09] MEDS: MULTIVITAMIN TAB PO SCH (08:03)
[2022-04-09] MEDS: CALCIUM 600MG + VIT D 400 IU TAB PO SCH ×3 (08:03→20:09)
[2022-04-09] MEDS: PANTOprazole 40 MG TAB PO SCH (08:03)
[2022-04-09] MEDS: ROSUVASTATIN CALCIUM 10 MG TAB PO SCH (08:03)
[2022-04-09] MEDS: dexAMETHasone 6 MG in SYRINGE 0 ML IV SCH (08:03)
[2022-04-09] MEDS: lisinopril 40 MG TAB PO SCH (08:37)
--- NOTE | 2022-04-09 08:42 | Hospitalist Progress Note ---
Date of Service April 09, 2022 Assessment & Plan (1) Neurogenic claudication due to lumbar spinal stenosis: (2) Hypertension: (3) Hyperlipidemia: (4) Sleep apnea: (5) Anxiety: (6) Depression: (7) History of paroxysmal supraventricular tachycardia: Plan Ms. Bautista is a 61 yo F that underwent a decompression and fusion surgery today to L1-L2, L2-L3, L3-L4 and L4-L5 after failed non-operative conservative management. Additional PMH includes: HTN, H/O SVT, HLD, anxiety/depression and GERD. Neurogenic claudication due to lumbar spinal stenosis: POD# 2 s/p decompression and fusion surgery with Dr. Frazier (on 04/07/22) Per ortho for pain control, wound care, anticoagulation and activities. ILDA drain x1 with serosang. drainage continue incentive spirometry PT/OT Acute blood loss anemia, postop, versus dilutional -Expected, no need for transfusion baseline Hgb on 03/18 pre-op was ~13, now down to 10.3 (but stable from yesterday 10.7) -Continue to monitor H&H Leg pain - cont. pain management, added neurontin HTN: H/O SVT: Takes Lisinopril, and Diltiazem Patient with regular heart rate postop; patient states last episode of SVT was more than 1 year ago monitor BP HLD: On Rosuvastatin; continue Anxiety and depression: Takes Buspirone and Lexapro; continue takes clonazepam PRN; continue GERD: Takes famotidine and Dexilant; continue Disposition: PCP: in [place] Code Status: Full Code VTE Prophylaxis: teds and SCDS for now/ per ortho Admission and Anticipated Discharge Date Admission Date: April 07, 2022 Subjective Patient seen in follow-up of consultation after lumbar spine surgery Currently lying in bed, in no acute distress Pain seems to be well controlled Already worked with physical therapy Passing gas, no BM yet Reports some leg pain No fevers chills chest pain shortness of breath no abdominal pain nausea vomiting Review of Systems Review of Systems: All systems reviewed & are unremarkable except as noted in Subjective Physical Exam Physical Exam: General : WD/WN F in NAD HEENT: NC/AT, moist mucus membranes CV: S1/S2, (-) M/G/R, (-) edema, ILDA drain x1 with serosang. drainage Resp: Lungs CTA in all lópez. On RA GI: Abdomen S/NT/ND, Ax4 bowel sounds, (-) CVA tenderness Musculoskeletal: moves extremities Skin: warm, dry, dressing intact on lower back. Neuro: AAOx4, PERRL, speech fluent, moves extremities Results & Data Results & Data ([facility]) Vital Signs (Past 12 Hours) Vital Signs Temp Pulse Resp BP Pulse Ox O2 Del Method 04/09/22 07:49 36.8 C 67 17 160/81 H 97 Room Air 04/08/22 22:32 36.8 C 64 18 131/70 93 Room Air Laboratory Results 04/09/22 04/09/22 04/08/22 Range/Units 06:00 06:00 09:12 WBC 15.63 H (4.8-10.8) K/ul RBC 3.47 L (3.93-5.22) M/uL Hgb 10.3 L (12.0-16.0) g/dl Hct 30.5 L (34.1-44.9) % MCV 87.9 (80.0-100.0) fL MCH 29.7 (25.0-34.0) pg MCHC 33.8 (32.0-36.0) g/dL RDW Std Deviation 43.4 (36.4-46.3) fL RDW Coeff of Chen 13.5 (11.5-14.5) % Plt Count 263 (130-400) K/uL MPV 10.8 (9.4-12.3) fL Immature Gran % (Auto) % Neut % (Auto) % Lymph % (Auto) % Citrus % (Auto) % Eos % (Auto) % Baso % (Auto) % Neut # (Auto) (1.4-6.5) K/uL Lymph # (Auto) (1.2-3.4) K/uL Citrus # (Auto) (0.24-0.82) K/uL Eos # (Auto) (0-0.50) K/uL Baso # (Auto) (0-0.2) K/uL Immature Gran # (Auto) (0.00-0.02) K/uL Sodium 140 137 (136-145) mmol/L Potassium 3.7 4.0 (3.5-5.1) mmol/L Chloride 103 103 (98-107) mmol/L Carbon Dioxide 31 27 (21-32) mmol/L Anion Gap 6 7 (3-11) BUN 11 11 (6-23) mg/dl Creatinine 0.58 L 0.66 (0.6-1.2) mg/dl Est Cr Clr Drug Dosing 118.7 104.3 ml/min Est GFR ( Amer) 113.7 109.0 ml/min Est GFR (Non-Af Amer) 98.1 94.0 ml/min BUN/Creatinine Ratio 19.0 16.7 (10-20) Glucose 98 121 H (70-99(Fasting)) mg/dl Calcium 8.6 8.7 (8.5-10.1) mg/dl Crossmatch 04/08/22 04/07/22 Range/Units 09:12 08:05 WBC 14.80 H (4.8-10.8) K/ul RBC 3.56 L (3.93-5.22) M/uL Hgb 10.7 L (12.0-16.0) g/dl Hct 30.9 L (34.1-44.9) % MCV 86.8 (80.0-100.0) fL MCH 30.1 (25.0-34.0) pg MCHC 34.6 (32.0-36.0) g/dL RDW Std Deviation 41.6 (36.4-46.3) fL RDW Coeff of Chen 13.1 (11.5-14.5) % Plt Count 267 (130-400) K/uL MPV 10.3 (9.4-12.3) fL Immature Gran % (Auto) 0.6 % Neut % (Auto) 79.2 % Lymph % (Auto) 10.0 % Citrus % (Auto) 10.1 % Eos % (Auto) 0.0 % Baso % (Auto) 0.1 % Neut # (Auto) 11.72 H (1.4-6.5) K/uL Lymph # (Auto) 1.48 (1.2-3.4) K/uL Citrus # (Auto) 1.49 H (0.24-0.82) K/uL Eos # (Auto) 0.00 (0-0.50) K/uL Baso # (Auto) 0.02 (0-0.2) K/uL Immature Gran # (Auto) 0.09 H (0.00-0.02) K/uL Sodium (136-145) mmol/L Potassium (3.5-5.1) mmol/L Chloride (98-107) mmol/L Carbon Dioxide (21-32) mmol/L Anion Gap (3-11) BUN (6-23) mg/dl Creatinine (0.6-1.2) mg/dl Est Cr Clr Drug Dosing ml/min Est GFR ( Amer) ml/min Est GFR (Non-Af Amer) ml/min BUN/Creatinine Ratio (10-20) Glucose (70-99(Fasting)) mg/dl Calcium (8.5-10.1) mg/dl Crossmatch See Detail Medications Administered Current Inpatient Medications Acetaminophen (Acetaminophen 500 Mg Tab) 1,000 mg PO Q8H PRN PRN Reason: MILD Pain Scale 1,2,3 & Pre PT Stop: 05/07/22 16:02 Last Admin: 04/09/22 07:28 Dose: 1,000 mg Al Hydrox/Mg Hydrox/Simethicone (Aluminum/Magnesium Susp 30 Ml Udc) 30 ml PO Q6H PRN PRN Reason: Dyspepsia Stop: 05/07/22 16:02 Bisacodyl (Bisacodyl 10 Mg Supp) 10 mg HI DAILY PRN PRN Reason: Constipation Stop: 05/07/22 16:02 Buspirone HCl (Buspirone 15 Mg Tab) 30 mg PO BID [facility] Stop: 05/07/22 20:59 Last Admin: 04/09/22 08:01 Dose: 30 mg Calcium/Vitamin D (Calcium 600mg + Vit D 400 Iu Tab) 1 tab PO TID [facility] Stop: 05/07/22 20:59 Last Admin: 04/09/22 08:03 Dose: 1 tab Diltiazem HCl (Diltiazem Hcl 60 Mg Tab) 90 mg PO TID [facility] Stop: 05/07/22 20:59 Last Admin: 04/09/22 08:02 Dose: 90 mg Diphenhydramine HCl (Diphenhydramine Capsule 25 Mg Cap) 25 mg PO Q6H PRN PRN Reason: Allergic Rhinitis/Insomnia Stop: 05/07/22 16:02 Escitalopram Oxalate (Escitalopram Oxalate 20 Mg Tab) 20 mg PO HS [facility] Stop: 05/07/22 20:59 Last Admin: 04/08/22 20:36 Dose: 20 mg Famotidine (Famotidine 40 Mg Tablet) 40 mg PO HS [facility] Stop: 05/07/22 20:59 Last Admin: 04/08/22 20:37 Dose: 40 mg Famotidine (Famotidine 20 Mg Tab) 20 mg PO Q12H PRN PRN Reason: Dyspepsia Stop: 05/07/22 16:02 Last Admin: 04/08/22 06:04 Dose: 20 mg Hydromorphone HCl (Hydromorphone Inj 0.5 Mg/0.5 Ml Syr) 0.5 mg IV Q3H PRN PRN Reason: MODERATE Pain (Scale 4,5,6) & Pre PT Stop: 04/21/22 16:02 Hydromorphone HCl (Hydromorphone Inj 1 Mg/Ml Syringe) 1 mg IV Q3H PRN PRN Reason: SEVERE Pain (Scale 7,8,9,10) Stop: 04/21/22 16:02 Hydroxyzine HCl (Hydroxyzine Hcl 25 Mg Tab) 25 mg PO Q8H PRN PRN Reason: Anxiety Stop: 05/07/22 16:02 Promethazine HCl 12.5 mg/ (Sodium Chloride) 50.5 mls @ 202 mls/hr IV Q6H PRN PRN Reason: Nausea &/or Vomiting Stop: 05/07/22 16:02 Dexamethasone 6 mg/ Syringe 1.5 mls @ 1 mls/min IV DAILY [facility] Stop: 04/10/22 09:02 Last Admin: 04/09/22 08:03 Dose: 1 mls/min Influenza Virus Vaccine Quadrival (Do Not Administer Flu Vaccine) 1 each N/A PRN PRN PRN Reason: Notification Stop: 05/07/22 16:02 Lisinopril (Lisinopril 40 Mg Tab) [facility] [place] Stop: 05/08/22 08:59 Last Admin: 04/09/22 08:37 Dose: 40 mg Lorazepam (Lorazepam 0.5 Mg Tab) 0.5 mg PO Q8H PRN PRN Reason: Sedation/Anxiety Stop: 05/07/22 16:02 Last Admin: 04/09/22 07:28 Dose: 0.5 mg Lorazepam (Lorazepam 2 Mg/1 Ml Vial) 0.5 mg IV Q8H PRN PRN Reason: Sedation/Anxiety Stop: 05/07/22 16:02 Magnesium Hydroxide (Magnesium Hydroxide Susp 30 Ml Udc) 30 ml PO Q24H PRN PRN Reason: Constipation Stop: 05/07/22 16:02 Metoclopramide HCl (Metoclopramide Hcl Inj 5 Mg/Ml 2 Ml Vial) 10 mg IV Q6H PRN PRN Reason: Nausea &/or Vomiting Stop: 05/07/22 16:02 Multivitamins (Multivitamin Tab) 1 tab [facility] [place] Stop: 05/08/22 08:59 Last Admin: 04/09/22 08:03 Dose: 1 tab Naloxone HCl (Naloxone Hcl 0.4 Mg/1 Ml Vial/Carp) 0.1 mg IV Q5M PRN PRN Reason: Oversedation/Resp depression Stop: 05/07/22 16:02 Ondansetron HCl (Ondansetron Inj 2 Mg/Ml 2 Ml Vial) 4 mg IV Q6H PRN PRN Reason: Nausea &/or Vomiting Stop: 05/07/22 16:02 Ondansetron HCl (Ondansetron 4 Mg Od Tab) 4 mg PO Q6H PRN PRN Reason: Nausea Stop: 05/07/22 16:02 Oxycodone HCl (Oxycodone Hcl Ir 5 Mg Tab (Immediate Release)) 5 - 10 mg PO Q4H PRN PRN Reason: Pain & Pre PT Stop: 04/21/22 16:02 Last Admin: 04/09/22 07:29 Dose: 10 mg Pantoprazole Sodium (Pantoprazole 40 Mg Tab) 40 mg PO QAM [facility] Stop: 05/08/22 08:59 Last Admin: 04/09/22 08:03 Dose: 40 mg Pneumococcal Polyvalent Vaccine (Do Not Administer Pneumococcal Vaccine) 1 each N/A PRN PRN PRN Reason: Notification Stop: 05/07/22 16:02 Polyethylene Glycol (Polyethylene (Miralax) 17 Gm Pack) 17 gm PO Q6 [facility] Stop: 05/08/22 05:59 Last Admin: 04/09/22 06:03 Dose: 17 gm Rosuvastatin Calcium (Rosuvastatin Calcium 10 Mg Tab) 10 mg PO QAM [facility] Stop: 05/08/22 08:59 Last Admin: 04/09/22 08:03 Dose: 10 mg Senna/Docusate Sodium (Docusate Sodium/Senna 50/8.6mg Tab) 2 tab PO HS [facility] Stop: 05/07/22 20:59 Last Admin: 04/08/22 20:37 Dose: 2 tab Sodium Biphosphate/Sodium Phosphate (Sod Phosphate/Sod Biphosphate Enema 132 Ml Btl) 132 ml HI ONE PRN PRN Reason: Constipation Stop: 05/07/22 16:02 Tramadol HCl (Tramadol Hcl 50 Mg Tablet) 50 - 100 mg PO Q4H PRN PRN Reason: Moderate-Severe pain & Pre PT Stop: 05/07/22 16:02 Last Admin: 04/09/22 04:58 Dose: 100 mg Trazodone HCl (Trazodone Hcl 50 Mg Tab) 150 mg PO [facility] Stop: 05/07/22 20:59 Last Admin: 04/08/22 20:37 Dose: 150 mg
--- NOTE | 2022-04-09 10:14 | Orthopedic Progress Note ---
Date of Service April 09, 2022 Assessment & Plan (1) Neurogenic claudication due to lumbar spinal stenosis: Plan: This time we will add Neurontin 300 mg p.o. 3 times daily. We will continue with physical therapy as tolerated. Admission and Anticipated Discharge Date Admission Date: April 07, 2022 Subjective Patient's back pain is controlled she struggling with intermittent leg pain but ambulating well. Urinating without difficulty positive flatus. Physical Exam Physical Exam: On exam she is good strength testing. Sensory is symmetric and intact. Results & Data ([facility]) Vital Signs (Past 12 Hours) Vital Signs Temp Pulse Resp BP Pulse Ox O2 Del Method 04/09/22 07:20 Room Air 04/09/22 07:49 36.8 C 67 17 160/81 H 97 Room Air 04/08/22 22:32 36.8 C 64 18 131/70 93 Room Air
[2022-04-09] MEDS: GABAPENTIN 300 MG CAP PO SCH ×2 (12:39→20:09)
[2022-04-09] MEDS ORDERED: POTASSIUM CHLORIDE CRTAB 20 MEQ TABCR PO STA (12:51)
[2022-04-09] MEDS: traZODone HCL 50 MG TAB PO SCH (20:08)
[2022-04-09] MEDS: DOCUSATE SODIUM/SENNA 50/8.6MG TAB PO SCH (20:08)
[2022-04-09] MEDS: FAMOTIDINE 40 MG TABLET PO SCH (20:08)
[2022-04-09] MEDS: ESCITALOPRAM OXALATE 20 MG TAB PO SCH (20:09)
[2022-04-10] MEDS: POLYETHYLENE (MIRALAX) 17 GM PACK PO SCH (00:45)
[2022-04-10] MEDS: oxyCODONE HCL IR 5 MG TAB (IMMEDIATE RELEASE) PO PRN ×2 (06:41→12:18)
[2022-04-10] MEDS: dexAMETHasone 6 MG in SYRINGE 0 ML IV SCH (07:45)
[2022-04-10] MEDS: dilTIAZem HCl 60 MG TAB PO SCH (07:46)
[2022-04-10] MEDS: CALCIUM 600MG + VIT D 400 IU TAB PO SCH (07:46)
[2022-04-10] MEDS: GABAPENTIN 300 MG CAP PO SCH (07:46)
[2022-04-10] MEDS: MULTIVITAMIN TAB PO SCH (07:46)
[2022-04-10] MEDS: busPIRone 15 MG TAB PO SCH (07:46)
[2022-04-10] MEDS: lisinopril 40 MG TAB PO SCH (07:46)
[2022-04-10] MEDS: PANTOprazole 40 MG TAB PO SCH (07:47)
[2022-04-10] MEDS: ROSUVASTATIN CALCIUM 10 MG TAB PO SCH (07:49)
--- NOTE | 2022-04-10 09:56 | Discharge Summary ---
Date of Service April 10, 2022 Admission HPI Per Admitting Provider This 61-year-old female presents with chronic persistent back and bilateral knee pain. Failed extensive course of nonoperative care she is here for surgical invention. Principal Diagnosis Lumbar spinal stenosis with neurogenic claudication Discharge Data Allergies Allergy/AdvReac Type Severity Reaction Status Date / Time hydrocodone Allergy Intermediate itching Verified 04/07/22 08:19 naproxen [From Naprosyn] Allergy Intermediate hives, Verified 04/07/22 08:19 tongue swells colchicine Allergy RASH, Verified 04/07/22 08:19 TACHYCARDIA NSAIDS (Non-Steroidal AdvReac Mild due to Verified 04/07/22 08:19 Anti-Inflamma gastric bypass Consultations 04/07/22 16:03 Consult Hospitalist Routine Procedures Performed Operation Date: 04/07/22 09:15 Actual Procedures p L2-L5 Decompression and Fusion(Not Applicable) - Jeb Frazier DO Ordered Studies 04/07/22 09:15 FL lumbar spine 2-3V Routine Hospital Course (1) Neurogenic claudication due to lumbar spinal stenosis: Patient with lumbar decompression fusion tolerated this well stable orthopedic for postoperative postop and when she was up and ambulating progressed to postop day #2 on postop day #3 pain was controlled ILDA drain decreased appropriately. Excellent strength testing. Safely discharged home. Discharge orders instructions found in chart for further review. Total Time Total Time Spent Total Time Spent (In Minutes): 20 minutes Discharge Plan Discharge Items Patient Disposition: Home - Self-Care Reason For Visit: Spinal Stenosis, Lumbar Region with Neurogenic Discharge Diagnosis: Lumbar spinal stenosis with neurogenic claudication Activity: As commented below Non-emergency contact: Primary Care Provider Call non-emergency contact if: you have any medication questions Follow-up/Referrals: Margaret Dougherty DO [Primary Care Provider] - Diet: Regular Addtl Attending Provider Instructions: ACTIVITY RECOMMENDATIONS: SELF CARE INSTRUCTIONS AFTER THORACIC/LUMBAR FUSIONS 1. You may walk to your tolerance. It is good exercise for your legs and back. Expect some back and intermittent leg aches and pains. 2. You may perform "counter-top" level activities (make a sandwich, jim with a project, etc.). 3. No bending or lifting of more than 10 pounds or back twisting of any nature (roll like a log when turning in bed). 4. You may ride in a car for 20-30 minutes at a time. No driving until after your first visit with your doctor. 5. Frequent changes of position and restricting sitting to 30 minutes at a time will help limit the amount of back spasms and stiffness you may experience. 6. You may discontinue the use of ambulatory aids (cane, crutches, etc.) once your strength and confidence allow. 7. 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 Do not take a tub bath, sit in a hot tub or go into a swimming pool until after your first recheck in the office. SPECIAL CARE INSTRUCTIONS: VERY IMPORTANT TO READ AND REVIEW A. Your surgical incision has been closed with a cosmetic suture under the skin that will dissolve in about 6 weeks. In 14 days, you can use a pair of clean scissors and cut the suture that is left outside of the skin at the ends of your incision. 1. The small skin tapes can be removed 7 days after surgery if they have not fallen off by that point. 2. You may keep the wound open to air as much as possible to promote healing after post-op day number 5 unless told otherwise by your doctor. 3. If you think the wound looks like it is becoming infected (redness or worsening drainage) and/or you are experiencing fever, chill or worsening back pain and muscle spasms, contact the office so that we may evaluate you as soon as possible. B. Complications are uncommon, but please contact us if you have any signs or symptoms of: 1. wound infection (fever higher than 102.5 degrees F, redness, separation of wound, drainage, or increasing pain from the incision) 2. blood clots in legs (pain, swelling, redness and warmth in legs) 3. urinary tract infection (fever higher than 102.5 degrees F, burning upon urination or increased frequency of urination) 4. nerve problems (inability to walk on your toes or heels, numbness, loss of bowel or bladder control) 5. any other symptoms that concern you C. Please call the office at if you have any concerns or questions about your operation or recovery. D. No smoking! Smoking drastically decreases the chance of a solid fusion. E. Do not take any anti-inflammatory medications (Indocin, Advil, Motrin, Aspirin, Naprosyn, etc.) as these may inhibit the chance of a solid fusion. Tylenol is okay to take for pain. MANAGING PAIN AFTER SPINAL SURGERY 1. Narcotic medication is intended for short-term use and will be provided for surgical pain. Surgical pain usually lasts for a period of 4-6 weeks. Narcotic medication includes Percocet, Vicodin, Darvocet, Tylenol #3 or Lortab. 2. Longer-term pain is more appropriately treated with non-narcotic medication such as Tylenol ES. 3. Muscle spasm is not appropriately treated with narcotics. Muscle relaxers such as Soma, Flexeril or Skelaxin can be used along with Tylenol ES. 4. Remember that we all live with some "aches and pains". This is not unusual or uncommon after an injury or as we get older. a. Back pain is expected and may include muscle spasms for 4 to 6 weeks after surgery. The pain should gradually improve. If the pain worsens for no apparent reason, please contact the office. b. Intermittent leg pain may also be experienced and should not be concerned about unless it worsens for no apparent reason. If so, please contact the office. 5. We will provide appropriate medication within the normal guidelines of their prescribed use. We will also be very cautious and aware of potential abuse and extended duration of patients' medication needs. a. Pain medications are for your comfort and to assist with sleep and rest so that the tissue can heal. They are not provided in order to return to normal activity and should not be used through the day. To do so or worsening pain at night can result from ongoing tissue damage and development of tolerance to the prescribed medicine. 6. Please allow 2-3 days to process refills. Prescriptions will not be mailed but must be picked up at the office. FOLLOW UP VISIT: Keep your scheduled follow-up appointment. Any questions, please call the office at . Pending Studies at Discharge: No Stand-Alone Forms: My AllergEase, Smoking Cessation Medications and CA Order Prescriptions: New oxycodone 5 mg tablet 5 mg PO Q6H PRN (Reason: pain, severe) Qty: 30 0RF tramadol 50 mg tablet 50 mg PO Q6H PRN (Reason: pain, moderate) Qty: 30 0RF gabapentin 300 mg Capsule 300 mg PO TID Qty: 90 2RF Continued multivitamin Tablet 1 tab PO QAM famotidine 40 mg Tablet 40 mg PO HS dexlansoprazole [Dexilant] 60 mg Capsule,Biphase Delayed Releas 60 mg PO QAM polyethylene glycol 3350 [Miralax] 17 gram Powder In Packet 17 g PO QAM clonazepam 1 mg Tablet 1 mg PO BID PRN (Reason: Anxiety) Stool Softener 50 mg Capsule 50 mg PO BID trazodone 150 mg Tablet 150 mg PO HS buspirone 30 mg Tablet 30 mg PO BID lisinopril 40 mg Tablet 40 mg PO QAM diltiazem HCl 90 mg Tablet 90 mg PO TID escitalopram oxalate [Lexapro] 20 mg Tablet 20 mg PO HS rosuvastatin 10 mg Tablet 10 mg PO QAM calcium citrate-vitamin D3 315 mg-6.25 mcg (250 unit) Tablet 1 tab PO TID Discharge Orders: Discharge Order (Routine); Ordered 04/10/22 Ordered By: Jeb Frazier Admission Data Admit Date/Time: 04/07/22 12:44 Attending Provider: Jeb Frazier Admit Provider: Jeb Frazier Primary Care Provider: Margaret Dougherty Other Providers: Nelly Solis ; Geovanni Carlson
[2022-04-10 10:17] LABS: Hematocrit (blood only) 31.1 % (34.1-44.9); Hemoglobin 10.3 g/dl (12.0-16.0); Mean Corpuscular Hemoglobin 29.7 pg (25.0-34.0); Mean Corpuscular Hgb Conc 33.1 g/dL (32.0-36.0); Mean Corpuscular Volume 89.6 fL (80.0-100.0); Platelet Count 285 K/uL (130-400); RDW Coefficient of Variation 13.7 % (11.5-14.5); RDW Standard Deviation 44.2 fL (36.4-46.3); Red Blood Count 3.47 M/uL (3.93-5.22); White Blood Count 16.98 K/ul (4.8-10.8)
[2022-04-10 11:14] LABS: BUN Creatinine Ratio 14.3 (10-20); Calcium 9.3 mg/dl (8.5-10.1); Creatinine Clr Calc Pharmacy 75.6 ml/min; Est GFR (African American) 77.8 ml/min; Est GFR (Non-African American) 67.1 ml/min; Magnesium 2.2 mg/dl (1.7-2.4); Phosphorus 2.3 mg/dl (2.5-4.9)
--- NOTE | 2022-04-10 11:14 | XRay Report ---
XR lumbar spine 2-3V CLINICAL HISTORY: postop standing films TECHNIQUE: 3 views of the lumbar spine were obtained. Comparison: Comparison is made to lumbar spine fluoroscopy 04/07/2022 FINDINGS: Posterior fixation hardware is seen. No periarticular lucency or hardware fracture is seen. Levoscoli osis is seen. There is partial visualization of left total hip arthroplasty.. Degenerative changes ar e seen in the lumbar spine. The alignment is normal. Vascular calcifications are noted. IMPRESSION: Expected postoperative appearance with no evidence of hardware fracture or loosening. Scoliosis is se en. ACT 112: Negative or not required by law. Electronically signed by: Julian Sesay M.D. 04/10/2022 11:13 AM
--- NOTE | 2022-04-10 11:24 | Hospitalist Progress Note ---
Date of Service April 10, 2022 Assessment & Plan (1) Neurogenic claudication due to lumbar spinal stenosis: (2) Hypertension: (3) Hyperlipidemia: (4) Sleep apnea: (5) Anxiety: (6) Depression: (7) History of paroxysmal supraventricular tachycardia: Plan Ms. Bautista is a 61 yo F that underwent a decompression and fusion surgery today to L1-L2, L2-L3, L3-L4 and L4-L5 after failed non-operative conservative management. Additional PMH includes: HTN, H/O SVT, HLD, anxiety/depression and GERD. Neurogenic claudication due to lumbar spinal stenosis: POD# 2 s/p decompression and fusion surgery with Dr. Frazier (on 04/07/22) Per ortho for pain control, wound care, anticoagulation and activities. ILDA drain x1 with serosang. drainage continue incentive spirometry PT/OT Acute blood loss anemia, postop, versus dilutional -Expected, no need for transfusion baseline Hgb on 03/18 pre-op was ~13, now down to 10.3 (but stable) -Continue to monitor H&H Leg pain - cont. pain management, added neurontin HTN: H/O SVT: Takes Lisinopril, and Diltiazem Patient with regular heart rate postop; patient states last episode of SVT was more than 1 year ago monitor BP HLD: On Rosuvastatin; continue Anxiety and depression: Takes Buspirone and Lexapro; continue takes clonazepam PRN; continue GERD: Takes famotidine and Dexilant; continue Disposition: PCP: in [place] Code Status: Full Code VTE Prophylaxis: teds and SCDS for now/ per ortho Admission and Anticipated Discharge Date Admission Date: April 07, 2022 Subjective Patient seen in follow-up of consultation after lumbar spine surgery Currently lying in bed, in no acute distress Pain seems to be well controlled Already worked with physical therapy Had BM leg pain improved, pt is ambulatory No fevers chills chest pain shortness of breath no abdominal pain nausea vomiting Likely DC later today Review of Systems Review of Systems: All systems reviewed & are unremarkable except as noted in Subjective Physical Exam Physical Exam: General : WD/WN F in NAD HEENT: NC/AT, moist mucus membranes CV: S1/S2, (-) M/G/R, (-) edema Resp: Lungs CTA in all lópez. On RA GI: Abdomen S/NT/ND, Ax4 bowel sounds, (-) CVA tenderness Musculoskeletal: moves extremities Skin: warm, dry, dressing intact on lower back. Neuro: AAOx4, PERRL, speech fluent, moves extremities Results & Data Results & Data ([facility]) Vital Signs (Past 12 Hours) Vital Signs Temp Pulse Pulse Resp BP Pulse Ox O2 Del Method 04/10/22 11:13 36.8 C 68 67 18 159/77 H 96 04/10/22 07:43 36.8 C 67 18 159/77 H 96 Room Air 04/10/22 05:40 36.8 C 66 18 160/67 H 96 Room Air Laboratory Results 04/10/22 04/10/22 Range/Units 09:54 09:54 WBC 16.98 H (4.8-10.8) K/ul RBC 3.47 L (3.93-5.22) M/uL Hgb 10.3 L (12.0-16.0) g/dl Hct 31.1 L (34.1-44.9) % MCV 89.6 (80.0-100.0) fL MCH 29.7 (25.0-34.0) pg MCHC 33.1 (32.0-36.0) g/dL RDW Std Deviation 44.2 (36.4-46.3) fL RDW Coeff of Chen 13.7 (11.5-14.5) % Plt Count 285 (130-400) K/uL MPV 10.0 (9.4-12.3) fL Sodium 137 (136-145) mmol/L Potassium 4.0 (3.5-5.1) mmol/L Chloride 101 (98-107) mmol/L Carbon Dioxide 30 (21-32) mmol/L Anion Gap 6 (3-11) BUN 13 (6-23) mg/dl Creatinine 0.91 D (0.6-1.2) mg/dl Est Cr Clr Drug Dosing 75.6 ml/min Est GFR ( Amer) 77.8 ml/min Est GFR (Non-Af Amer) 67.1 ml/min BUN/Creatinine Ratio 14.3 (10-20) Glucose 129 H (70-99(Fasting)) mg/dl Calcium 9.3 (8.5-10.1) mg/dl Phosphorus 2.3 L (2.5-4.9) mg/dl Magnesium 2.2 (1.7-2.4) mg/dl Medications Administered Current Inpatient Medications Acetaminophen (Acetaminophen 500 Mg Tab) 1,000 mg PO Q8H PRN PRN Reason: MILD Pain Scale 1,2,3 & Pre PT Stop: 05/07/22 16:02 Last Admin: 04/09/22 16:38 Dose: 1,000 mg Al Hydrox/Mg Hydrox/Simethicone (Aluminum/Magnesium Susp 30 Ml Udc) 30 ml PO Q6H PRN PRN Reason: Dyspepsia Stop: 05/07/22 16:02 Bisacodyl (Bisacodyl 10 Mg Supp) 10 mg WA DAILY PRN PRN Reason: Constipation Stop: 05/07/22 16:02 Buspirone HCl (Buspirone 15 Mg Tab) 30 mg PO BID ZACKARY Stop: 05/07/22 20:59 Last Admin: 04/10/22 07:46 Dose: 30 mg Calcium/Vitamin D (Calcium 600mg + Vit D 400 Iu Tab) 1 tab PO TID ZACKARY Stop: 05/07/22 20:59 Last Admin: 04/10/22 07:46 Dose: 1 tab Diltiazem HCl (Diltiazem Hcl 60 Mg Tab) 90 mg PO TID [facility] Stop: 05/07/22 20:59 Last Admin: 04/10/22 07:46 Dose: 90 mg Diphenhydramine HCl (Diphenhydramine Capsule 25 Mg Cap) 25 mg PO Q6H PRN PRN Reason: Allergic Rhinitis/Insomnia Stop: 05/07/22 16:02 Escitalopram Oxalate (Escitalopram Oxalate 20 Mg Tab) 20 mg PO HS [facility] Stop: 05/07/22 20:59 Last Admin: 04/09/22 20:09 Dose: 20 mg Famotidine (Famotidine 40 Mg Tablet) 40 mg PO HS [facility] Stop: 05/07/22 20:59 Last Admin: 04/09/22 20:08 Dose: 40 mg Famotidine (Famotidine 20 Mg Tab) 20 mg PO Q12H PRN PRN Reason: Dyspepsia Stop: 05/07/22 16:02 Last Admin: 04/08/22 06:04 Dose: 20 mg Gabapentin (Gabapentin 300 Mg Cap) 300 mg PO TID [facility]ACK[facility] Stop: 05/09/22 13:59 Last Admin: 04/10/22 07:46 Dose: 300 mg Hydromorphone HCl (Hydromorphone Inj 0.5 Mg/0.5 Ml Syr) 0.5 mg IV Q3H PRN PRN Reason: MODERATE Pain (Scale 4,5,6) & Pre PT Stop: 04/21/22 16:02 Hydromorphone HCl (Hydromorphone Inj 1 Mg/Ml Syringe) 1 mg IV Q3H PRN PRN Reason: SEVERE Pain (Scale 7,8,9,10) Stop: 04/21/22 16:02 Hydroxyzine HCl (Hydroxyzine Hcl 25 Mg Tab) 25 mg PO Q8H PRN PRN Reason: Anxiety Stop: 05/07/22 16:02 Promethazine HCl 12.5 mg/ (Sodium Chloride) 50.5 mls @ 202 mls/hr IV Q6H PRN PRN Reason: Nausea &/or Vomiting Stop: 05/07/22 16:02 Influenza Virus Vaccine Quadrival (Do Not Administer Flu Vaccine) 1 each N/A PRN PRN PRN Reason: Notification Stop: 05/07/22 16:02 Lisinopril (Lisinopril 40 Mg Tab) 40 mg PO [facility] Stop: 05/08/22 08:59 Last Admin: 04/10/22 07:46 Dose: 40 mg Lorazepam (Lorazepam 0.5 Mg Tab) 0.5 mg PO Q8H PRN PRN Reason: Sedation/Anxiety Stop: 05/07/22 16:02 Last Admin: 04/09/22 07:28 Dose: 0.5 mg Lorazepam (Lorazepam 2 Mg/1 Ml Vial) 0.5 mg IV Q8H PRN PRN Reason: Sedation/Anxiety Stop: 05/07/22 16:02 Magnesium Hydroxide (Magnesium Hydroxide Susp 30 Ml Udc) 30 ml PO Q24H PRN PRN Reason: Constipation Stop: 05/07/22 16:02 Last Admin: 04/09/22 12:34 Dose: 30 ml Metoclopramide HCl (Metoclopramide Hcl Inj 5 Mg/Ml 2 Ml Vial) 10 mg IV Q6H PRN PRN Reason: Nausea &/or Vomiting Stop: 05/07/22 16:02 Multivitamins ([facility]itamin Tab) [facility] Stop: 05/08/22 08:59 Last Admin: 04/10/22 07:46 Dose: 1 tab Naloxone HCl (Naloxone Hcl 0.4 Mg/1 Ml Vial/Carp) 0.1 mg IV Q5M PRN PRN Reason: Oversedation/Resp depression Stop: 05/07/22 16:02 Ondansetron HCl (Ondansetron Inj 2 Mg/Ml 2 Ml Vial) 4 mg IV Q6H PRN PRN Reason: Nausea &/or Vomiting Stop: 05/07/22 16:02 Ondansetron HCl (Ondansetron 4 Mg Od Tab) 4 mg PO Q6H PRN PRN Reason: Nausea Stop: 05/07/22 16:02 Oxycodone HCl (Oxycodone Hcl Ir 5 Mg Tab (Immediate Release)) 5 - 10 mg PO Q4H PRN PRN Reason: Pain & Pre PT Stop: 04/21/22 16:02 Last Admin: 04/10/22 06:41 Dose: 10 mg Pantoprazole Sodium (Pantoprazole 40 Mg Tab) 40 mg PO [facility] Stop: 05/08/22 08:59 Last Admin: 04/10/22 07:47 Dose: 40 mg Pneumococcal Polyvalent Vaccine (Do Not Administer Pneumococcal Vaccine) 1 each N/A PRN PRN PRN Reason: Notification Stop: 05/07/22 16:02 Rosuvastatin Calcium (Rosuvastatin Calcium 10 Mg Tab) 10 mg PO [facility] Stop: 05/08/22 08:59 Last Admin: 04/10/22 07:49 Dose: 10 mg Senna/Docusate Sodium (Docusate Sodium/Senna 50/8.6mg Tab) 2 tab PO HS [facility] Stop: 05/07/22 20:59 Last Admin: 04/09/22 20:08 Dose: 2 tab Sodium Biphosphate/Sodium Phosphate (Sod Phosphate/Sod Biphosphate Enema 132 Ml Btl) 132 ml WA ONE PRN PRN Reason: Constipation Stop: 05/07/22 16:02 Tramadol HCl (Tramadol Hcl 50 Mg Tablet) 50 - 100 mg PO Q4H PRN PRN Reason: Moderate-Severe pain & Pre PT Stop: 05/07/22 16:02 Last Admin: 04/09/22 04:58 Dose: 100 mg Trazodone HCl (Trazodone Hcl 50 Mg Tab) 150 mg PO [facility] Stop: 05/07/22 20:59 Last Admin: 04/09/22 20:08 Dose: 150 mg
== END 2022-04-10 12:50 | disposition home or self-care (01) | DRG 454 ==
LOC: ASU 07:41 → 3E 12:44
DX: M48.062 Spinal stenosis, lumbar region with neurogenic claudication; Z98.1 Arthrodesis status; E66.9 Obesity, unspecified; Z82.49 Family history of ischemic heart disease and other diseases of the circulatory system; Z88.8 Allergy status to other drugs, medicaments and biological substances; Z79.899 Other long term (current) drug therapy; E78.5 Hyperlipidemia, unspecified; F32.A Depression, unspecified; I47.1 Supraventricular tachycardia; M79.609 Pain in unspecified limb; D62 Acute posthemorrhagic anemia; K21.9 Gastro-esophageal reflux disease without esophagitis; Z68.33 Body mass index [BMI] 33.0-33.9, adult; Z88.6 Allergy status to analgesic agent; F41.9 Anxiety disorder, unspecified; Z87.891 Personal history of nicotine dependence; Z88.5 Allergy status to narcotic agent; I10 Essential (primary) hypertension